=== PATIENT | female | born 1970 | race Caucasian/White ===

== ENCOUNTER 2016-07-12 06:35 | Inpatient (IN) | payer SELFPAY ==
[2016-07-12] VITALS (11 sets, daily range): BP systolic 127–142; BP diastolic 68–89; PULSE 82–150; RESP 18–24; TEMP 98.1–102.3; O2SAT 95–100
[~2016-07-12] VITALS: Ht 167.6 cm; Wt 123.0 kg
[~2016-07-12 06:35] MED LIST: MOBI15TA PO; TRAM50 PO; Z.0.NO CURRENT MEDS
[2016-07-12] MEDS ORDERED: SODIUM CHLOR 0.9% 1000 ML INJ 1,000 ML IV SCH (07:09)
[2016-07-12] MEDS ORDERED: MORPHINE SULFATE 4 MG/ML INJ IV PUSH ONE (07:15)
[2016-07-12] MEDS ORDERED: SODIUM CHLORIDE 0.9% FLUSH 10 ML FLUSH IV FLUSH PRN ×2 (07:15→12:00)
[2016-07-12] MEDS ORDERED: ONDANSETRON HCL 4 MG/2 ML VIAL IVP ONE (07:15)
--- NOTE | 2016-07-12 07:15 | PD ---
HPI Chief Complaint: Abdominal Pain Time Seen by Provider: 07:02 Travel History International Travel<30 days: No Contact w/Intl Traveler<30days: No Traveled to known affect area: No History of Present Illness HPI This 45-year-old female presents the emergency department with chills abdominal pain and body aches for the past 4-5 days. Patient states she's also having nausea and one episode of emesis morning. States she's never had something was this happen before. She points to her entire abdomen for the pain however there seems to localize mostly to the right upper quadrant. She states it radiates to her back and upper spine. Denies any history of surgeries in the past. Cannot identify any alleviating or exacerbating factors. States she's been taking ibuprofen at home with minimal relief. Also endorses decreased bowel movement frequency over this time period. Symptoms are moderate. Patient states she thought she was having an appendicitis his pain was in her right lower quadrant and her daughter had one recently however that pain has resolved. PFSH Past Medical History Medical History: Denies Significant Hx Diminished Hearing: No Medical other: Yes (OVARIAN CYSTS) Tetanus Vaccination: Unknown Influenza Vaccination: No ?: Not LMP: 3 WEEKS PRIOR : 3 Para: 2 Past Surgical History Surgical History: No Previous Surgery Section: Yes Social History Alcohol Use: Yes (OCCASIONAL) Tobacco Use: Yes (1 PACK PER WEEK) Substance Use: No Allergies-Medications (Allergen,Severity, Reaction): Coded Allergies: Sulfa (Verified Allergy, Severe, HIVES, 07/12/16) Reported Meds & Prescriptions Reported Meds & Active Scripts Active No Active Prescriptions or Reported Medications Review of Systems Except as stated in HPI: all other systems reviewed are Neg Physical Exam Narrative GENERAL: Well-developed, overweight in no obvious distress. SKIN: Focused skin assessment warm/dry. HEAD: Atraumatic. Normocephalic. EYES: Pupils equal and round. No scleral icterus. No injection or drainage. ENT: No nasal bleeding or discharge. Mucous membranes pink and dry. NECK: Trachea midline. No JVD. CARDIOVASCULAR: Regular rhythm with mild tachycardia. No murmur appreciated. 2 + bilateral equal pulses in all 4 extremities RESPIRATORY: No accessory muscle use. Clear to auscultation. Breath sounds equal bilaterally. GASTROINTESTINAL: Abdomen soft, moderately tender in the right upper quadrant, weakly positive Calvo sign. nondistended. Hepatic and splenic margins not palpable. No rebound no percussive tenderness. No tenderness at McBurney's point. MUSCULOSKELETAL: No obvious deformities. No clubbing. No cyanosis. No edema. NEUROLOGICAL: Awake and alert. No obvious cranial nerve deficits. Motor grossly within normal limits. Normal speech. PSYCHIATRIC: Appropriate mood and affect; insight and judgment normal. Data Data Last Documented VS Vital Signs Date Time Temp Pulse Resp B/P Pulse Ox O2 Delivery O2 Flow Rate FiO2 07/12/16 11:11 19 07/12/16 11:08 102.3 132 127/69 97 Room Air 07/12/16 10:01 15 Orders Complete Blood Count With Diff (07/12/16 07:09) Comprehensive Metabolic Panel (07/12/16 07:09) Lipase (07/12/16 07:09) Prothrombin Time / Inr (Pt) (07/12/16 07:09) Act Partial Throm Time (Ptt) (07/12/16 07:09) Urinalysis - C+S If Indicated (07/12/16 07:09) Ct Abd/Pel W Iv Contrast(Rout) (07/12/16 07:09) Us Abdomen Gallbladder (07/12/16 ) Iv Access Insert/Monitor (07/12/16 07:09) Ecg Monitoring (07/12/16 07:09) Oximetry (07/12/16 07:09) Morphine Inj (Morphine Inj) (07/12/16 07:15) Ondansetron Inj (Zofran Inj) (07/12/16 07:15) Sodium Chlor 0.9% 1000 Ml Inj (Ns 1000 M (07/12/16 07:09) Sodium Chloride 0.9% Flush (Ns Flush) (07/12/16 07:15) Electrocardiogram (07/12/16 07:09) Ed Urine Pregnancytest Poc (07/12/16 07:09) Urine Culture (07/12/16 08:15) Iohexol 350 Inj (Omnipaque 350 Inj) (07/12/16 09:20) Hydromorphone Pf Inj (Dilaudid Pf Inj) (07/12/16 10:15) Blood Culture (07/12/16 10:02) Lactic Acid (07/12/16 10:02) Sodium Chlor 0.9% 1000 Ml Inj (Ns 1000 M (07/12/16 10:15) Piperacil-Tazo 4.5 Gm Premix (Zosyn 4.5 (07/12/16 10:15) Vancomycin Inj (Vancomycin Inj) (07/12/16 10:15) Ondansetron Inj (Zofran Inj) (07/12/16 11:00) Acetaminophen (Tylenol) (07/12/16 11:00) Sodium Chlor 0.9% 1000 Ml Inj (Ns 1000 M (07/12/16 11:45) Sodium Chlor 0.9% 1000 Ml Inj (Ns 1000 M (07/12/16 11:45) Admit Order (Ed Use Only) (07/12/16 ) Labs Laboratory Tests Test 07/12/16 07/12/16 07/12/16 07:35 08:15 10:15 White Blood Count 9.1 TH/MM3 Red Blood Count 4.47 MIL/MM3 Hemoglobin 11.1 GM/DL Hematocrit 34.9 % Mean Corpuscular Volume 78.2 FL Mean Corpuscular Hemoglobin 24.9 PG Mean Corpuscular Hemoglobin 31.8 % Concent Red Cell Distribution Width 16.2 % Platelet Count 202 TH/MM3 Mean Platelet Volume 8.8 FL Neutrophils (%) (Auto) 86.7 % Lymphocytes (%) (Auto) 7.8 % Monocytes (%) (Auto) 4.2 % Eosinophils (%) (Auto) 0.7 % Basophils (%) (Auto) 0.6 % Neutrophils # (Auto) 7.9 TH/MM3 Lymphocytes # (Auto) 0.7 TH/MM3 Monocytes # (Auto) 0.4 TH/MM3 Eosinophils # (Auto) 0.1 TH/MM3 Basophils # (Auto) 0.1 TH/MM3 CBC Comment DIFF FINAL Differential Comment Prothrombin Time 10.5 SEC Prothromb Time International 1.0 RATIO Ratio Activated Partial 28.6 SEC Thromboplast Time Sodium Level 140 MEQ/L Potassium Level 3.7 MEQ/L Chloride Level 104 MEQ/L Carbon Dioxide Level 26.9 MEQ/L Anion Gap 9 MEQ/L Blood Urea Nitrogen 17 MG/DL Creatinine 0.84 MG/DL Estimat Glomerular Filtration 73 ML/MIN Rate Random Glucose 139 MG/DL Calcium Level 9.0 MG/DL Total Bilirubin 0.8 MG/DL Aspartate Amino Transf 15 U/L (AST/SGOT) Alanine Aminotransferase 10 U/L (ALT/SGPT) Alkaline Phosphatase 71 U/L Total Protein 7.2 GM/DL Albumin 3.5 GM/DL Lipase 75 U/L Urine Color YELLOW Urine Turbidity CLOUDY Urine pH 6.0 Urine Specific [place] 1.018 Urine Protein 100 mg/dL Urine Glucose (UA) NEG mg/dL Urine Ketones NEG mg/dL Urine Occult Blood SMALL Urine Nitrite POS Urine Bilirubin NEG Urine Urobilinogen LESS THAN 2.0 MG/DL Urine Leukocyte Esterase LARGE Urine RBC 11 /hpf Urine WBC /hpf Urine WBC Clumps MANY Urine Squamous Epithelial 5 /hpf Cells Urine Bacteria MOD /hpf Urine Mucus FEW /lpf Microscopic Urinalysis Comment CULTURE INDICATED Lactic Acid Level 5.9 mmol/L MDM Medical Decision Making Medical Screen Exam Complete: Yes Emergency Medical Condition: Yes Interpretation(s) EKG shows sinus tachycardia rate of 101, intervals otherwise within normal limits, normal axis and normal R-wave progression. No concerning ST T changes. This is a normal EKG except for rate. Differential Diagnosis Cholecystitis, Cholelithiasis, kidney stone, urinary tract infection, sepsis, severe sepsis. Narrative Course Patient was roomed in emergency department, my initial exam is highly consistent with intermittent biliary colic and possible acute cholecystitis. Patient did have an ultrasound which was weakly positive for cholecystitis. However her liver labs look well. At 10:00 patient had status change: Became quite tachycardic and nauseous. She heart rate went as high as 150. She did spike a temperature this time to 102. She now meet surgical criteria and full septic workup was started. Her lactic acid returned at 6.8. She was given 30 cc per KG bolus and started on vancomycin and Zosyn. She was given Dilaudid and her heart rate was controlled with Dilaudid alone. She appeared much more comfortable after that. Patient was discussed with Dr. Sosa for admission to the ICU who is agreeable. Patient was discussed with Dr. Harris Reynolds who is evaluating the patient at bedside. Likely we'll try for ureteral stent placement tomorrow. Dr. China Olsen or has also been consult today who will see the patient in routine consult probably later this afternoon. Dr. Olsen later called me and stated that if Dr. Reynolds is going to take to the operating room tomorrow she would consider doing a hysterectomy at that time. She is going to call Dr. Reynolds directly. These consultants recommendations were passed on to Dr. Sosa Patient despite her lactic acid is responded quite well to Dilaudid alone. She was given core measure fluid bolus resuscitation and antibiotics after the sepsis was recognized at 10:00. Critical Care Narrative Aggregate critical care time was 35 minutes. Time to perform other separately billable procedures was not included in the critical care time. My time did not include minutes spent treating any other patients simultaneously or on activities that did not directly contribute to the patient's treatment. The services I provided to this patient were to treat and/or prevent clinically significant deterioration that could result in: , disability, organ failure. I provided critical care services requiring my management, as noted below: Chart data review, documentation time, medication orders and management, vital sign assessments/reviewing monitor data, ordering and reviewing lab tests, ordering and interpreting/reviewing x-rays and diagnostic studies, care of the patient and discussion of the patient with the admitting physicians. Diagnosis Primary Impression: Sepsis Qualified Code: A41.9 - Sepsis, due to unspecified organism Additional Impressions: UTI (urinary tract infection) Qualified Code: N10 - Acute pyelonephritis RUQ abdominal pain Abdominal mass Qualified Code: R19.01 - Right upper quadrant abdominal mass Admitting Information Admitting Physician Requests: Admit Scripts No Active Prescriptions or Reported Meds Condition: Gaurav Ayala MD July 12, 2016 07:15
[2016-07-12 08:16] LABS: AUTOMATED NEUTROPHIL # 7.9 TH/MM3 (1.8-7.7); BASOPHIL # 0.1 TH/MM3 (0-0.2); BASOPHIL % 0.6 % (0.0-2.0); EOSINOPHIL # 0.1 TH/MM3 (0-0.4); EOSINOPHIL % 0.7 % (0.0-4.0); HEMATOCRIT 34.9 % (35.0-46.0); HEMO FLAGS DIFF FINAL; LYMPH % 7.8 % (9.0-44.0); LYMPHOCYTE # 0.7 TH/MM3 (1.0-4.8); MEAN CELL VOLUME 78.2 FL (80.0-100.0); MEAN CORPUSCULAR HEMOGLOBIN 24.9 PG (27.0-34.0); MEAN CORPUSCULAR HGB CONC 31.8 % (32.0-36.0); MONO % 4.2 % (0.0-8.0); NEUT % 86.7 % (16.0-70.0); PLATELET COUNT 202 TH/MM3 (150-450); RED BLOOD COUNT 4.47 MIL/MM3 (4.00-5.30); RED CELL DISTRIBUTION WIDTH 16.2 % (11.6-17.2); WHITE BLOOD COUNT 9.1 TH/MM3 (4.0-11.0)
[2016-07-12 08:24] LABS: APTT (PATIENT) 28.6 SEC (24.3-30.1); PROTHROMBIN TIME - PATIENT 10.5 SEC (9.8-11.6)
[2016-07-12 08:40] LABS: ALKALINE PHOSPHATASE 71 U/L (45-117); ALT (GPT) 10 U/L (10-53); ANION GAP 9 MEQ/L (5-15); AST (GOT) 15 U/L (15-37); BICARBONATE 26.9 MEQ/L (21.0-32.0); BLOOD UREA NITROGEN 17 MG/DL (7-18); CHLORIDE 104 MEQ/L (98-107); GLOMERULAR FILTRATION RATE 73 ML/MIN (>89); POTASSIUM 3.7 MEQ/L (3.5-5.1); SODIUM (NA) 140 MEQ/L (136-145); TOTAL BILIRUBIN ADULT 0.8 MG/DL (0.2-1.0)
[2016-07-12 08:49] LABS: BACTERIA, URINE MOD /hpf; BLOOD, URINE SMALL (NEG); COMMENT (UR) CULTURE INDICATED; CULTURE IF INDICATED CULTURE INDICATED; GLUCOSE,URINE NEG (NEG); KETONE, URINE NEG (NEG); MUCUS URINE FEW /lpf (OCC); SQUAMOUS EPITHELIAL CELL URINE 5 /hpf (0-5); URINE COLOR YELLOW (YELLW/STRAW)
[2016-07-12 08:59] LABS: NITRITE,URINE POS (NEG)
--- NOTE | 2016-07-12 09:02 | RADRPT ---
EXAM DATE/TIME: 07/12/2016 07:38 [facility] COMPARISON: No previous studies available for comparison. INDICATIONS : Right upper quadrant pain. MEDICAL HISTORY : Ovarian cysts. Abdominal pain localized mostly in the right upper quadrant. Nausea. Vomitting. SURGICAL HISTORY : None. ENCOUNTER: Initial ACUITY: 4-6 days PAIN SCORE: 8/10 LOCATION: Right upper quadrant MEASUREMENTS: LIVER: 18.9 cm length COMMON DUCT: 6 mm RIGHT KIDNEY: 12.7 x 6.2 x 5.6 cm FINDINGS: LIVER: Mildly prominent in size. Otherwise within normal limits. COMMON DUCT: No intraluminal mass or stone visualized. GALLBLADDER: Small amount of sludge in the dependent portion of the gallbladder. No shadowing calculi identified. No wall thickening or pericholecystic fluid. Patient reports discomfort with ultrasound transducer pr essure over the gallbladder. PANCREAS: The visualized portions are within normal limits. RIGHT KIDNEY: No evidence of hydronephrosis, stone, or mass. CONCLUSION: 1. Liver mildly enlarged. 2. Common duct diameter is mildly prominent for age. 3. Sludge in the gallbladder. No calculi or wall thickening identified. Patient reports pain with tra nsducer pressure over the gallbladder. Chang Rose MD on July 12, 2016 at 8:55 Board Certified Radiologist. This report was verified electronically.
[2016-07-12] MEDS ORDERED: IOHEXOL 350 MG/ML 10 ML VIAL (for RAD DIAG) IV ONE (09:20)
--- NOTE | 2016-07-12 09:56 | RADRPT ---
EXAM DATE/TIME: 07/12/2016 09:05 [facility] COMPARISON: No previous studies available for comparison. INDICATIONS : Right flank abdomen pain/ Flu like symptoms. IV CONTRAST: 85 cc Omnipaque 350 (iohexol) IV ORAL CONTRAST: No oral contrast ingested. RADIATION DOSE: 16.89 CTDIvol (mGy) MEDICAL HISTORY : None SURGICAL HISTORY : section. ENCOUNTER: Initial ACUITY: 3 days PAIN SCALE: 7/10 LOCATION: Right flank TECHNIQUE: Volumetric scanning of the abdomen and pelvis was performed. Using automated exposure control and ad justment of the mA and/or kV according to patient size, radiation dose was kept as low as reasonably achievable to obtain optimal diagnostic quality images. FINDINGS: LOWER LUNGS: The visualized lower lungs are clear. LIVER: Homogeneous density without lesion. There is no dilation of the biliary tree. No calcified gallston es. SPLEEN: Spleen is mildly enlarged measuring 14.1 cm in craniocaudal dimension. PANCREAS: Within normal limits. KIDNEYS: Mild right hydronephrosis and mild proximal to mid right hydroureter. Right-sided mild perinephric st randing and periureteral stranding. No ureteral calculus identified. Left kidney and ureter are withi n normal limits. ADRENAL GLANDS: Within normal limits. VASCULAR: There is no aortic aneurysm. BOWEL/MESENTERY: Scattered colonic diverticula. No evidence of acute diverticulitis. No bowel dilatation. Appendix wit hin normal limits. No free air or free fluid. ABDOMINAL WALL: 1.6 cm fat-containing paraumbilical hernia. RETROPERITONEUM: There is no lymphadenopathy. BLADDER: No wall thickening or mass. REPRODUCTIVE: Uterus is markedly enlarged wit 11.8 x 7.5 cm heterogeneous solid mass of the right side of the uteri ne fundus likely representing a fibroid. The level of ureteral obstruction appears to be at the level of the fibroid. Prominent nabothian cysts in the cervix. 5.6 cm cystic mass in the left ovary. 3.9 c m cystic area in the right ovary. Right ovary is superior to the uterine fundus. INGUINAL: There is no lymphadenopathy or hernia. MUSCULOSKELETAL: Prominent degenerative findings of the lumbar spine facet joints. CONCLUSION: 1. Mild right-sided hydronephrosis and mild proximal to mid right hydroureter. Perinephric and periur eteral stranding also noted along with mild delay in right-sided renal enhancement. No calculi identi fied. The level of obstruction appears to be at the level of a large right-sided uterine mass likely representing a fibroid. 2. Bilateral cystic ovarian masses may represent ovarian cysts and could be further evaluated with letitia fritz. Chang Rose MD on July 12, 2016 at 9:30 Board Certified Radiologist. This report was verified electronically.
[2016-07-12] MEDS ORDERED: VANCOMYCIN INJ 1,000 MG in SODIUM CHLOR 0.9% 250 ML INJ 250 ML IV ONE (10:15)
[2016-07-12] MEDS ORDERED: PIPERACIL-TAZO 4.5 GM PREMIX 100 ML IV ONE (10:15)
[2016-07-12] MEDS ORDERED: HYDROmorphone HCL PF 1 MG/ML VIAL IV PUSH ONE (10:15)
[2016-07-12] MEDS: SODIUM CHLOR 0.9% 1000 ML INJ 1,000 ML IV ONE ×2 (10:35→10:53)
[2016-07-12] MEDS ORDERED: ACETAMINOPHEN 325 MG TAB PO ONE (11:00)
[2016-07-12] MEDS ORDERED: ONDANSETRON HCL 4 MG/2 ML VIAL IV PUSH ONE (11:00)
[2016-07-12] MEDS ORDERED: SODIUM CHLOR 0.9% 1000 ML INJ 1,000 ML IV ONE ×2 (11:45)
[2016-07-12] MEDS ORDERED: CHLORHEXIDINE GLUCONATE 2 % 1 PACK (2 CLOTHS) TOP PRN (12:00)
[2016-07-12] MEDS ORDERED: MISCELLANEOUS NURSING INFORMATION XX SCH (12:00)
[2016-07-12] MEDS ORDERED: Vancomycin Consult Pharmacy 1 EA OTHER SCH (12:00)
[2016-07-12] MEDS: PANTOPRAZOLE SODIUM 40 MG VIAL IV SCH (12:21)
--- NOTE | 2016-07-12 12:28 | PD.CONS ---
HPI Service Urology Consult Requested By Primary Care Physician Non-Staff Diagnosis: History of Present Illness 45-year-old female who presents with increasing abdominal pain low back pain with nausea vomiting and fever. She states that her symptoms began to worsen over the weekend and have persistently escalated. She has nausea and vomiting this morning with a fever at home. She has a history of an ovarian mass and due to insurance issues this has not been addressed for over 2 years. She denies any flank pain but does admit to ongoing low back pain. CT scan was performed while the patient was in the emergency room which demonstrated a 11 cm x 7 cm pelvic mass/ovarian cyst which is compressing the right ureter causing mild hydroureteronephrosis. She denies any prior history of urinary tract infection but does have a positive UA on admission. She denies any prior history of stones, UTIs, or gross hematuria. ASSOCIATE RELATIONS SPECIALIST consult is currently pending. Review of Systems Constitutional: COMPLAINS OF: Diaphoretic episodes Eyes: DENIES: Blurred vision, Diplopia Cardiovascular: DENIES: Chest pain Gastrointestinal: COMPLAINS OF: Abdominal pain, Nausea, Vomiting Genitourinary: DENIES: Urinary frequency, Urinary incontinence, Urgency, Hematuria, Dysuria Musculoskeletal: DENIES: Joint pain Hematologic/lymphatic: DENIES: Bruising Immunologic/allergic: DENIES: Eczema Neurologic: DENIES: Abnormal gait Psychiatric: DENIES: Anxiety Past Family Social History Past Medical History History of ovarian cyst Past Surgical History Denies Allergies: Coded Allergies: Sulfa (Verified Allergy, Severe, HIVES, 07/12/16) Family History Heart disease Social History Occasional alcohol is noted with occasional smoking. Does not use drugs. Physical Exam Vital Signs Date Time Temp Pulse Resp B/P Pulse Ox O2 Delivery O2 Flow Rate FiO2 07/12/16 12:06 100.4 123 20 136/68 95 Room Air 07/12/16 11:11 19 07/12/16 11:08 102.3 132 19 127/69 97 Room Air 07/12/16 11:08 102.3 132 19 127/69 97 Room Air 07/12/16 10:01 99.9 150 24 130/89 100 Non-Rebreather 15 07/12/16 09:33 104 20 132/78 98 Room Air 07/12/16 07:47 20 07/12/16 07:16 99.7 96 20 136/75 98 Room Air 07/12/16 07:05 20 07/12/16 07:05 99.7 96 20 136/75 98 Room Air 07/12/16 06:38 98.1 113 18 142/82 97 Room Air Physical Exam GENERAL: This is a well-nourished, well-developed patient, in no apparent distress. SKIN: No rashes, ecchymoses or lesions. Cool and dry. HEAD: Atraumatic. Normocephalic. No temporal or scalp tenderness. EYES: Pupils equal round and reactive. Extraocular motions intact. No scleral icterus. No injection or drainage. ENT: Nose without bleeding, purulent drainage or septal hematoma. Throat without erythema, tonsillar hypertrophy or exudate. Uvula midline. Airway patent. NECK: Trachea midline. No JVD or lymphadenopathy. Supple, nontender, no meningeal signs. CARDIOVASCULAR: Regular rate and rhythm without murmurs, gallops, or rubs. RESPIRATORY: Clear to auscultation. Breath sounds equal bilaterally. No wheezes , rales, or rhonchi. GASTROINTESTINAL: Abdomen soft, tender with palpation of lower abdomen, nondistended. No hepato-splenomegaly, No guarding. GENITOURINARY: Normal external female genitalia MUSCULOSKELETAL: Extremities without clubbing, cyanosis, or edema. No joint tenderness, effusion, or edema noted. No calf tenderness. Negative Homans sign bilaterally. NEUROLOGICAL: Awake and alert. Cranial nerves II through XII intact. Motor and sensory grossly within normal limits. Five out of 5 muscle strength in all muscle groups. Normal speech. Laboratory Tests Test 07/12/16 07/12/16 07/12/16 07:35 08:15 10:15 White Blood Count 9.1 Red Blood Count 4.47 Hemoglobin 11.1 Hematocrit 34.9 Mean Corpuscular Volume 78.2 Mean Corpuscular Hemoglobin 24.9 Mean Corpuscular Hemoglobin 31.8 Concent Red Cell Distribution Width 16.2 Platelet Count 202 Mean Platelet Volume 8.8 Neutrophils (%) (Auto) 86.7 Lymphocytes (%) (Auto) 7.8 Monocytes (%) (Auto) 4.2 Eosinophils (%) (Auto) 0.7 Basophils (%) (Auto) 0.6 Neutrophils # (Auto) 7.9 Lymphocytes # (Auto) 0.7 Monocytes # (Auto) 0.4 Eosinophils # (Auto) 0.1 Basophils # (Auto) 0.1 CBC Comment DIFF FINAL Differential Comment Prothrombin Time 10.5 Prothromb Time International 1.0 Ratio Activated Partial 28.6 Thromboplast Time Sodium Level 140 Potassium Level 3.7 Chloride Level 104 Carbon Dioxide Level 26.9 Anion Gap 9 Blood Urea Nitrogen 17 Creatinine 0.84 Estimat Glomerular Filtration 73 Rate Random Glucose 139 Calcium Level 9.0 Total Bilirubin 0.8 Aspartate Amino Transf 15 (AST/SGOT) Alanine Aminotransferase 10 (ALT/SGPT) Alkaline Phosphatase 71 Total Protein 7.2 Albumin 3.5 Lipase 75 Urine Color YELLOW Urine Turbidity CLOUDY Urine pH 6.0 Urine Specific [place] 1.018 Urine Protein 100 Urine Glucose (UA) NEG Urine Ketones NEG Urine Occult Blood SMALL Urine Nitrite POS Urine Bilirubin NEG Urine Urobilinogen LESS THAN 2.0 Urine Leukocyte Esterase LARGE Urine RBC 11 Urine WBC Urine WBC Clumps MANY Urine Squamous Epithelial 5 Cells Urine Bacteria MOD Urine Mucus FEW Microscopic Urinalysis Comment CULTURE INDICATED Lactic Acid Level 5.9 Date/Time Procedure Status Source Growth 07/12/16 10:25 Aerobic Blood Culture Received Blood Peripheral Pending 07/12/16 10:25 Anaerobic Blood Culture Received Blood Peripheral Pending 07/12/16 08:15 Urine Culture Received Urine Clean Catch Pending Result Diagram: 07/12/16 0735 07/12/16 0735 Imaging Last Impressions Abdomen/Pelvis CT 07/12/16 0709 Signed Impressions: Service Date/Time: Tuesday, July 12, 2016 09:05 - CONCLUSION: 1. Mild right-sided hydronephrosis and mild proximal to mid right hydroureter. Perinephric and periureteral stranding also noted along with mild delay in right-sided renal enhancement. No calculi identified. The level of obstruction appears to be at the level of a large right-sided uterine mass likely representing a fibroid. 2. Bilateral cystic ovarian masses may represent ovarian cysts and could be further evaluated with ultrasound. Chang Rose MD Gall Bladder Ultrasound 07/12/16 0000 Signed Impressions: Service Date/Time: Tuesday, July 12, 2016 07:38 - CONCLUSION: 1. Liver mildly enlarged. 2. Common duct diameter is mildly prominent for age. 3. Sludge in the gallbladder. No calculi or wall thickening identified. Patient reports pain with transducer pressure over the gallbladder. Chang Rose MD Assessment and Plan Assessment and Plan 45-year-old female with findings of pelvic mass/ovarian cyst with mild right hydronephrosis and hydroureter with possible UTI. Recommend DTPA renal scan to rule out evidence of obstruction. If obstruction is present, will require cystoscopy with right double-J stent insertion. Continue IV fluids and IV antibiotics. Nothing by mouth after midnight. ASSOCIATE RELATIONS SPECIALIST consult pending. Thank you for the consult and for allow me to participate in the care of this patient. Harris Reynolds DO July 12, 2016 12:28
[2016-07-12] MEDS ORDERED: RESP: ALBUTEROL 2.5 MG/IPRATROPIUM 0.5 MG NEB (PRN) NEB (12:30)
[2016-07-12] MEDS ORDERED: FUROSEMIDE 40 MG/4 ML VIAL ONE (14:20)
--- NOTE | 2016-07-12 14:39 | HHI.HP ---
[facility] Service Critical Care Medicine Primary Care Physician Non-Staff Admission Diagnosis Severe Sepsis, UTI, Obstructive uropathy. Diagnosis: Chief Complaint: Abdominal pain Travel History International Travel<30 Days: No Contact w/Intl Traveler <30 Da: No Traveled to Known Affected Are: No Sepsis Criteria SIRS Criteria (2 or more): Temp > 100.9 or < 96.8, WBC > 41949, < 4000 or > 10 % bands Sepsis Criteria (SIRS+source): Infect source susp/known Severe Sepsis (+one): Lactate >2 Criteria Outcome: Meets severe sepsis criteria History of Present Illness This 45-year-old female presents the emergency department with chills abdominal pain and body aches for the past 4-5 days. Patient states she's also having nausea and one episode of emesis morning. States she's never had something was this happen before. She points to her entire abdomen for the pain however there seems to localize mostly to the right upper quadrant. She states it radiates to her back and upper spine. Denies any history of surgeries in the past. Cannot identify any alleviating or exacerbating factors. States she's been taking ibuprofen at home with minimal relief. Also endorses decreased bowel movement frequency over this time period. Symptoms are moderate. Patient underwent CT abdomen and pelvis which revealed right hydronephrosis with perinephric stranding as well as right sided uterine mass. She was also noted to have an elevated lactic acid and was felt to be septic from pyelonephritis. Patient was accepted for admission by critical care medicine service. When I evaluated the patient in the ER she is resting in the ER stretcher did not appear to be in any acute distress. She had received 3 L of crystalloid bolus as well as IV antibiotics. She denied any shortness of breath or chest pain. Denied any nausea currently. Denied any melena or rectal bleeding. She states she has had problems with recurrent UTIs over the last 6 months to year and has known about her pelvic mass however could not get medical treatment due to insurance issues. PENDING SALE TO [facility] Past Medical History Medical History: Denies Significant Hx Diminished Hearing: No Medical other: Yes (OVARIAN CYSTS) Tetanus Vaccination: Unknown Influenza Vaccination: No ?: Not LMP: 3 WEEKS PRIOR : 3 Para: 2 Past Surgical History Surgical History: No Previous Surgery Section: Yes Social History Alcohol Use: Yes (OCCASIONAL) Tobacco Use: Yes (1 PACK PER WEEK) Substance Use: No Allergies-Medications (Allergen,Severity, Reaction): Coded Allergies: Sulfa (Verified Allergy, Severe, HIVES, 07/12/16) Reported Meds & Prescriptions Reported Meds & Active Scripts Active No Active Prescriptions or Reported Medications Review of Systems Except as stated in HPI: all other systems reviewed are Neg Physical Exam Vital Signs Vital Signs Date Time Temp Pulse Resp B/P Pulse Ox O2 Delivery O2 Flow Rate FiO2 07/12/16 13:31 99.5 118 20 136/74 96 07/12/16 12:06 100.4 123 20 136/68 95 Room Air 07/12/16 11:11 19 07/12/16 11:08 102.3 132 19 127/69 97 Room Air 07/12/16 11:08 102.3 132 19 127/69 97 Room Air 07/12/16 10:01 99.9 150 24 130/89 100 Non-Rebreather 15 07/12/16 09:33 104 20 132/78 98 Room Air 07/12/16 07:47 20 07/12/16 07:16 99.7 96 20 136/75 98 Room Air 07/12/16 07:05 20 07/12/16 07:05 99.7 96 20 136/75 98 Room Air 07/12/16 06:38 98.1 113 18 142/82 97 Room Air Physical Exam Physical Exam Narrative GENERAL: Well-developed, overweight in no obvious distress. SKIN: Focused skin assessment warm/dry. HEAD: Atraumatic. Normocephalic. EYES: Pupils equal and round. No scleral icterus. No injection or drainage. ENT: No nasal bleeding or discharge. Mucous membranes pink and dry. NECK: Trachea midline. No JVD. CARDIOVASCULAR: Regular rhythm with mild tachycardia. No murmur appreciated. 2 + bilateral equal pulses in all 4 extremities RESPIRATORY: No accessory muscle use. Clear to auscultation. Breath sounds equal bilaterally. GASTROINTESTINAL: Abdomen soft, moderately tender in the right side of abdomen. nondistended. Hepatic and splenic margins not palpable. No rebound no percussive tenderness. No tenderness at McBurney's point. MUSCULOSKELETAL: No obvious deformities. No clubbing. No cyanosis. No edema. NEUROLOGICAL: Awake and alert. No obvious cranial nerve deficits. Motor grossly within normal limits. Normal speech. PSYCHIATRIC: Appropriate mood and affect; insight and judgment normal. Laboratory Laboratory Tests Test 07/12/16 07/12/16 07/12/16 07:35 08:15 10:15 White Blood Count 9.1 Red Blood Count 4.47 Hemoglobin 11.1 Hematocrit 34.9 Mean Corpuscular Volume 78.2 Mean Corpuscular Hemoglobin 24.9 Mean Corpuscular Hemoglobin 31.8 Concent Red Cell Distribution Width 16.2 Platelet Count 202 Mean Platelet Volume 8.8 Neutrophils (%) (Auto) 86.7 Lymphocytes (%) (Auto) 7.8 Monocytes (%) (Auto) 4.2 Eosinophils (%) (Auto) 0.7 Basophils (%) (Auto) 0.6 Neutrophils # (Auto) 7.9 Lymphocytes # (Auto) 0.7 Monocytes # (Auto) 0.4 Eosinophils # (Auto) 0.1 Basophils # (Auto) 0.1 CBC Comment DIFF FINAL Differential Comment Prothrombin Time 10.5 Prothromb Time International 1.0 Ratio Activated Partial 28.6 Thromboplast Time Sodium Level 140 Potassium Level 3.7 Chloride Level 104 Carbon Dioxide Level 26.9 Anion Gap 9 Blood Urea Nitrogen 17 Creatinine 0.84 Estimat Glomerular Filtration 73 Rate Random Glucose 139 Calcium Level 9.0 Total Bilirubin 0.8 Aspartate Amino Transf 15 (AST/SGOT) Alanine Aminotransferase 10 (ALT/SGPT) Alkaline Phosphatase 71 Total Protein 7.2 Albumin 3.5 Lipase 75 Urine Color YELLOW Urine Turbidity CLOUDY Urine pH 6.0 Urine Specific [place] 1.018 Urine Protein 100 Urine Glucose (UA) NEG Urine Ketones NEG Urine Occult Blood SMALL Urine Nitrite POS Urine Bilirubin NEG Urine Urobilinogen LESS THAN 2.0 Urine Leukocyte Esterase LARGE Urine RBC 11 Urine WBC Urine WBC Clumps MANY Urine Squamous Epithelial 5 Cells Urine Bacteria MOD Urine Mucus FEW Microscopic Urinalysis Comment CULTURE INDICATED Lactic Acid Level 5.9 Date/Time Procedure Status Source Growth 07/12/16 10:25 Aerobic Blood Culture Received Blood Peripheral Pending 07/12/16 10:25 Anaerobic Blood Culture Received Blood Peripheral Pending 07/12/16 08:15 Urine Culture Received Urine Clean Catch Pending Result Diagram: 07/12/16 0735 07/12/16 0735 Imaging Last Impressions Abdomen/Pelvis CT 07/12/16 0709 Signed Impressions: Service Date/Time: Sunday, July 12, 2016 09:05 - CONCLUSION: 1. Mild right-sided hydronephrosis and mild proximal to mid right hydroureter. Perinephric and periureteral stranding also noted along with mild delay in right-sided renal enhancement. No calculi identified. The level of obstruction appears to be at the level of a large right-sided uterine mass likely representing a fibroid. 2. Bilateral cystic ovarian masses may represent ovarian cysts and could be further evaluated with ultrasound. Chang Rose MD Gall Bladder Ultrasound 07/12/16 0000 Signed Impressions: Service Date/Time: Tuesday, July 12, 2016 07:38 - CONCLUSION: 1. Liver mildly enlarged. 2. Common duct diameter is mildly prominent for age. 3. Sludge in the gallbladder. No calculi or wall thickening identified. Patient reports pain with transducer pressure over the gallbladder. Chang Rose MD Septic Shock Reassessment Heart: Regular rate and rhythm Lungs: Clear Skin: Warm Peripheral Pulses: Bounding Right Radial Assessment and Plan Assessment and Plan 45-year-old female with: Pyelonephritis Right hydronephrosis secondary to right uterine mass Severe sepsis Hyperlactatemia Plan: Neuro: Follow neuro status. Pain medications as needed. Cardiovascular: Received multiple fluid boluses in the ER. Continue IV hydration. 10 lactic acid. Watch for hypotension. Pulmonary: Bronchodilators as needed. Nasal cannula as needed. GI/liver: Heart healthy diet Renal/: Urology consulted and patient has been evaluated by Dr. Reynolds for right sided hydronephrosis secondary to right uterine mass. He is planning on ureteral stenting on 07/13 CAMPUS MONITOR: CAMPUS MONITOR consulted for right uterine mass ID: Follow-up cultures. Empiric antibiotic coverage with IV vancomycin/Zosyn. Patient has multiple courses of Cipro for recurrent UTIs. Heme: Follow CBC Endocrine: Watch for hyperglycemia, SSI for glycemic control if needed Prophylaxis: SCDs. Hold heparin or Lovenox till after procedure tomorrow. Patient is hemodynamically stable currently in no acute distress. We'll consult and transfer to hospitalist to assume medical management tomorrow. Critical care will be available as needed. Lul Lugo MD July 12, 2016 14:39
[2016-07-12] MEDS ORDERED: HYDROmorphone HCL PF 1 MG/ML VIAL IV PUSH PRN (16:15)
[2016-07-12] MEDS: PIPERACIL-TAZO 4.5 GM PREMIX 100 ML IV SCH ×2 (17:00→22:54)
--- NOTE | 2016-07-12 17:05 | PD.CONS ---
History & Physical H&P HUMAN RESOURCE OFFICER consultation Patient is a 45-year-old white female para 2 who presents with polynephritis, the patient's infection and seems to be related to ureteral obstruction on the left side due to impinging enlarging uterine fibroid patient states she's note for several years that she's had a fibroid uterus she's to try get it treated in the operated on but she has no insurance and she has no funds to allow this Thing to be going on every time she's tried she is turned away because lack of funds or insurance she presented and is now in the ICU related to a sepsis situation related to the pyelonephritis. Patient states she still has menstrual cycles that are regular but becoming much more painful and heavy Exam--patient is moderately obese she does have a tenderness in lower abdomen. On exam the uterine size is consistent with approximately 18 week gestation size and is 1-2+ tender Impression-uterine leiomyomata enlarged and compressing the ureter that appears to be on the left, this resulted in of stasis flow and pyelonephritis Plan-patient is set up to have a ureteral stent placed tomorrow by urology and I will discuss the case with Dr. Hou who is the HUMAN RESOURCE OFFICER doctor gleason operator tonight and today regarding the possibility of a CASSIE/BSO while the patient's here. Sadi Bond II, MD July 12, 2016 17:05
--- NOTE | 2016-07-12 17:26 | RADRPT ---
EXAM DATE/TIME: 07/12/2016 14:09 [place] COMPARISON: CT ABDOMEN & PELVIS W CONTRAST, July 12, 2016, 9:05. INDICATIONS : Obstruction. Right upper quadrant pain radiating to the back for five days. DOSE: 20.2 mCi Tc99m DTPA IV MEDICATION: 40 mg Lasix IV MEDICAL HISTORY : None SURGICAL HISTORY : section. ENCOUNTER: Initial ACUITY: 4 - 6 days PAIN SCALE: 6/10 LOCATION: Right upper quadrant TECHNIQUE: Dynamic images were performed in the posterior projection for a total of 28 minutes. FINDINGS: FLOW: There is symmetric arrival of bolus to both kidneys. There is homogeneous perfusion to both kidneys. Asymmetric differential function of the kidneys with 45% function on the left and 55% function on th e right. EXCRETION: There is normal renal cortical transit time and normal rate of washout from the parenchyma following Lasix. There is mild pooling in the right renal pelvis. CONCLUSION: 1. Mild pooling of contrast in the right renal pelvis but no evidence of obstruction. 2. Mildly decreased differential function of the left kidney relative to the right. Chang Rose MD on July 12, 2016 at 17:14 Board Certified Radiologist. This report was verified electronically.
[2016-07-12] MEDS: VANCOMYCIN INJ 1,500 MG in SODIUM CHLORID 0.9% 500 ML INJ 500 ML IV SCH (18:00)
[2016-07-12] MEDS: SODIUM CHLOR 0.9% 1000 ML INJ 1,000 ML IV SCH (18:37)
[2016-07-12] MEDS: SODIUM CHLORIDE 0.9% FLUSH 10 ML FLUSH IV FLUSH SCH (21:00)
[2016-07-13] VITALS (12 sets, daily range): PULSE 79–103
[2016-07-13] MEDS ORDERED: VANCOMYCIN INJ 1,000 MG in SODIUM CHLOR 0.9% 250 ML INJ 250 ML IV SCH ×2
[2016-07-13] MEDS: SODIUM CHLOR 0.9% 1000 ML INJ 1,000 ML IV SCH ×3 (01:49→23:18)
[2016-07-13] MEDS: CHLORHEXIDINE GLUCONATE 2 % 1 PACK (2 CLOTHS) TOP SCH (01:51)
[2016-07-13 04:57] LABS: AUTOMATED NEUTROPHIL # 6.3 TH/MM3 (1.8-7.7); BASOPHIL # 0.1 TH/MM3 (0-0.2); BASOPHIL % 0.6 % (0.0-2.0); EOSINOPHIL # 0.1 TH/MM3 (0-0.4); EOSINOPHIL % 1.4 % (0.0-4.0); HEMATOCRIT 30.8 % (35.0-46.0); HEMO FLAGS DIFF FINAL; LYMPH % 14.3 % (9.0-44.0); LYMPHOCYTE # 1.2 TH/MM3 (1.0-4.8); MEAN CELL VOLUME 78.3 FL (80.0-100.0); MEAN CORPUSCULAR HEMOGLOBIN 25.3 PG (27.0-34.0); MEAN CORPUSCULAR HGB CONC 32.3 % (32.0-36.0); MONO % 6.4 % (0.0-8.0); NEUT % 77.3 % (16.0-70.0); PLATELET COUNT 173 TH/MM3 (150-450); RED BLOOD COUNT 3.93 MIL/MM3 (4.00-5.30); RED CELL DISTRIBUTION WIDTH 16.5 % (11.6-17.2); WHITE BLOOD COUNT 8.1 TH/MM3 (4.0-11.0)
[2016-07-13] MEDS: PIPERACIL-TAZO 4.5 GM PREMIX 100 ML IV SCH ×4 (05:29→23:18)
[2016-07-13] MEDS: ONDANSETRON HCL 4 MG/2 ML VIAL IV PUSH PRN ×3 (05:29→19:46)
[2016-07-13 05:33] LABS: ANION GAP 8 MEQ/L (5-15); AST (GOT) 19 U/L (15-37); BICARBONATE 28.2 MEQ/L (21.0-32.0); BLOOD UREA NITROGEN 16 MG/DL (7-18); CHLORIDE 104 MEQ/L (98-107); GLOMERULAR FILTRATION RATE 71 ML/MIN (>89); POTASSIUM 3.1 MEQ/L (3.5-5.1); SODIUM (NA) 140 MEQ/L (136-145)
[2016-07-13 05:35] LABS: ALKALINE PHOSPHATASE 63 U/L (45-117); ALT (GPT) 11 U/L (10-53); TOTAL BILIRUBIN ADULT 0.8 MG/DL (0.2-1.0)
[2016-07-13] MEDS: VANCOMYCIN INJ 1,500 MG in SODIUM CHLORID 0.9% 500 ML INJ 500 ML IV SCH (06:25)
--- NOTE | 2016-07-13 06:48 | MB ---
cc: STEFANO CASTILLO DATE OF CONSULTATION 07/12/2016 DATE OF 1970 REASON FOR CONSULTATION Large fibroid uterus possibly obstructing right ureteral collecting system. TIME OF CONSULTATION 5:30 HISTORY Suha is a 45-year-old white female para 2 with LMP approximately two weeks ago who came in today to the emergency room with severe abdominal and right-sided pain. She said this woke her up in the night and caused her to have nausea and vomiting. She also developed a fever of over 102. She has a history of frequent urinary tract infections and she knows that she has large fibroids as documented apparently at [facility]. She actually attempted evaluation at [facility] and after waiting eight months to get their share of cost clinic schedule, she was told she needed an MRI that she cannot afford and simply returned to [facility]. She has noted in the last year that her periods are coming every 14-15 days, lasting 5-6 days and becoming more painful. She has not had a BASKETBALL SCOUT exam with Pap smear in many years. She has had two children vaginally in the distant past. She still has her appendix and her gallbladder. She has not been aware of any pelvic inflammatory disease, endometriosis, inflammatory bowel condition or other concerns. PAST MEDICAL HISTORY She has no other chronic or systemic illnesses. She has had no hospitalizations other than the of her children. SOCIAL HISTORY She quit smoking a year ago. She does not drink. She has never used illicit drugs. 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 REVIEW OF SYSTEMS Her review of systems is otherwise negative. FAMILY HISTORY Noncontributory PHYSICAL EXAM On physical exam, she is an obese white female in no acute distress, sitting upright in her bed with chicken nuggets and fries. GENERAL: She is alert and oriented x3, very pleasant and cooperative. LUNGS: Her lungs were clear. HEART: Her heart rate and rhythm are regular. ABDOMEN: Her abdomen is obese and abdominal exam is really noncontributory. She does not exhibit significant CVA tenderness. I did not appreciate any hepatosplenomegaly. There were no hernias and no lymph nodes in the groin. PELVIC: Perineum appears to be well estrogenized. The vault is quite deep. The uterus is markedly enlarged. The cervix is distorted and flattened out and the uterus fills the cul-de-sac to the sidewalls and posteriorly. I cannot get a good idea on how big it is in the vertical dimension. EXTREMITIES: She has negative Homans and no significant varicosities. LABORATORY DATA Her white count is 9.1. Her hemoglobin 11.1. Her chemistry shows a creatinine of 0.84. Her lactic acid was elevated at 5.9. Liver functions, lipase and amylase were normal. Urine shows a significant amount of leukocyte esterase, bacteria, protein and glucose were negative. Also noted her random glucose was a little elevated at 139. IMAGING STUDIES Her MRI showed mild right-sided hydronephrosis and mild proximal to mid right hydroureter. There was some perinephric and periurethral stranding noted. No calculi were noted. It was felt that the level obstruction appear to be due to the distorted increased uterus with probably a large right-sided fibroid. Bilateral cystic ovaries were also noted. IMPRESSION Fever of unknown origin with significant abdominal pain and possible renal colic. Large uterine fibroid that may be partially obstructing the right ureter. Normal creatinine. Lack of gynecologic screening to rule out such processes as cervical disease, endometrial disease or ovarian disease. Differential diagnosis of her menometrorrhagia and uterine mass could be endometrial carcinoma, endometrial hyperplasia, mild myosarcoma, cervical cancer, she could have pelvic inflammatory disease, endometriosis or a non gynecologic condition in addition to the large fibroids. The fibroids need to be addressed in their own right given that her periods are not tolerable in amount, time, and duration. However, it is in her best interest to have a more complete workup which includes CA-125, a Pap smear and endometrial biopsy and a transvaginal ultrasound. I have explained to her that when she recovers from her infection, we will have these things done in my office and then schedule her surgery with ureteral stents placed by Dr. Reynolds in the near future. She voiced understanding and felt that all her questions were answered. MD ALEKSANDER Jorge/NEHA /7:39 PM /6:31 AM
[2016-07-13] MEDS ORDERED: POTASSIUM CHLOR 20 MEQ PREMIX 100 ML IV SCH (07:00)
[2016-07-13] MEDS: PANTOPRAZOLE SODIUM 40 MG VIAL IV SCH (07:51)
[2016-07-13] MEDS ORDERED: POTASSIUM CHLORIDE 20 MEQ CONTROLLED RELEASE TAB PO ONE (08:00)
[2016-07-13] MEDS: SODIUM CHLORIDE 0.9% FLUSH 10 ML FLUSH IV FLUSH SCH ×2 (08:04→21:00)
[2016-07-13] MEDS: oxyCODONE/ACETAMINOPHEN 10 MG/325 MG TAB PO PRN ×2 (09:45→21:06)
--- NOTE | 2016-07-13 10:41 | PD.CONS ---
HPI Chief Complaint severe abdominal pain and high fever known fibroids and heavy bleeding with pain possible compression of right ureter with mild hydronephrosis Gram - rods in blood cultures x2 Date Seen: Jul 13, 2016 Travel History International Travel<30 Days: No Contact w/Intl Traveler<30Days: No Known Affected Area: No History of Present Illness HPI Since yesterday the abdominal pain has not recurred. She has constipation. She has a headache. Afebrile. WBC 8.1 Potassium 3.1 hgb 10 (consistent with heavy chronic bleeding) additional history obtained: no hx abnormal pap. Hx fibroids and thickened endometrial lining. Can't take advantage of her annual [place] pass because walking and bending becoming increasingly painful. Allergies-Medications (Allergen,Severity, Reaction): Coded Allergies: Sulfa (Verified Allergy, Severe, HIVES, 07/12/16) Home Meds No Active Prescriptions or Reported Meds Physical Exam Vital Signs Date Time Temp Pulse Resp B/P Pulse Ox O2 Delivery O2 Flow Rate FiO2 07/13/16 10:00 99 07/13/16 08:00 99 07/13/16 06:00 92 07/13/16 04:00 90 07/13/16 02:00 79 07/13/16 00:00 86 07/12/16 22:00 82 07/12/16 20:00 90 07/12/16 15:00 98 07/12/16 13:31 99.5 118 20 136/74 96 07/12/16 12:06 100.4 123 20 136/68 95 Room Air 07/12/16 11:11 19 07/12/16 11:08 102.3 132 19 127/69 97 Room Air 07/12/16 11:08 102.3 132 19 127/69 97 Room Air Narrative GENERAL: Well-nourished, well-developed patient. SKIN: Warm and dry. HEAD: Normocephalic and atraumatic. EYES: No scleral icterus. No injection or drainage. ENT: No nasal drainage noted. Mucous membranes pink. Airway patent. NECK: Supple, trachea midline. No JVD. CARDIOVASCULAR: Regular rate and rhythm without murmurs, gallops, or rubs. RESPIRATORY: Breath sounds equal bilaterally. No accessory muscle use. BREASTS: Bilateral exam showed no masses , no retractions, no nipple discharge. ABDOMEN/GI: Abdomen soft, non-tender, bowel sounds present, no rebound, no guarding Gravid to [-] weeks size Fundal Height: [-] GENITOURINARY: External Genitalia: intact and normal in appearance BUS glands: [-] Cervix: [-] Dilatation: [-] Effacement: [-] Station: [-] Presentation: [-] Membranes: [intact or ruptured] Uterine Contractions: [-] FHT's: Category: [-] Baseline: [-] Reactive: [-] Variability: [-] Decels: [-] EXTREMITIES: No cyanosis or edema. BACK: Nontender without obvious deformity. No CVA tenderness. NEUROLOGICAL: Awake and alert. Motor and sensory grossly within normal limits. Five out of 5 muscle strength in all muscle groups. Normal speech. Data Data Orders Ondansetron Inj (Zofran Inj) (07/12/16 11:00) Acetaminophen (Tylenol) (07/12/16 11:00) Sodium Chlor 0.9% 1000 Ml Inj (Ns 1000 M (07/12/16 11:45) Sodium Chlor 0.9% 1000 Ml Inj (Ns 1000 M (07/12/16 11:45) Admit Order (Ed Use Only) (07/12/16 ) Admit To Inpatient (07/12/16 ) Air Brush Artist / Telemetry RIVER.Q8H (07/12/16 11:57) Sodium Chlor 0.9% 1000 Ml Inj (Ns 1000 M (07/12/16 11:57) Sodium Chloride 0.9% Flush (Ns Flush) (07/12/16 12:00) Sodium Chloride 0.9% Flush (Ns Flush) (07/12/16 21:00) Pantoprazole Inj (Protonix Inj) (07/12/16 12:00) Lactic Acid Sepsis Protocol (07/12/16 16:00) Comprehensive Metabolic Panel (07/13/16 06:00) Complete Blood Count With Diff (07/13/16 06:00) Consult Pt Eval & Treat (07/12/16 11:57) Ot Request For Service (07/12/16 11:57) Scd Bilateral/Knee High RIVER.BID (07/12/16 11:57) Vancomycin Consult Pharmacy (Vancomycin (07/12/16 12:00) Piperacil-Tazo 4.5 Gm Premix (Zosyn 4.5 (07/12/16 17:00) ^ Initiate Protocol (07/12/16 11:57) ^ Instruction (07/12/16 11:57) [facility] (07/12/16 12:00) Chlorhexidine 2% Cloth (Chlorhexidine 2% (07/13/16 04:00) Chlorhexidine 2% Cloth (Chlorhexidine 2% (07/12/16 12:00) Mrsa Pcr Surveillance (07/12/16 11:57) Inpatient Certification (07/12/16 ) Consult Gynecology (07/12/16 ) Consult Urology (07/12/16 ) Renogram W Pharm (Dpta/Lasix) (07/12/16 ) Albuterol-Ipratropium Neb (Duoneb Neb) (07/12/16 12:30) Vancomycin Inj (Vancomycin Inj) (07/13/16 00:00) (Hub Use Only)Inp Phy Cons/Ref (07/12/16 ) (Hub Use Only)Inp Phy Cons/Ref (07/12/16 ) Vancomycin Trough (07/14/16 05:45) Vancomycin Inj (Vancomycin Inj) (07/12/16 18:00) [facility] [place] Nursing Information (07/14/16 05:45) Diet Regular Basic (07/12/16 Lunch) Furosemide Inj (Lasix Inj) (07/12/16 14:20) Consult Hospitalist (07/12/16 ) Hydromorphone Pf Inj (Dilaudid Pf Inj) (07/12/16 16:15) Oxycodone-Acetamin 10-325 Mg (Percocet 1 (07/12/16 16:15) Urinary Catheter Management RIVER.Q8H (07/12/16 16:23) Diet Regular Basic (07/13/16 Breakfast) ^ Other Nursing Orders (07/12/16 20:49) Sleeve, Knee Sequential Coy Pr (07/13/16 04:53) Ondansetron Inj (Zofran Inj) (07/13/16 05:00) Physician Name Changes (07/13/16 ) Potassium Chlor 20 Meq Premix (Kcl 20 Me (07/13/16 07:00) Potassium Chloride (Kcl) (07/13/16 08:00) Patient Transfer (07/13/16 ) ^ Other Nursing Orders (07/13/16 10:32) Polyethylene Glycol (Miralax) (07/13/16 12:00) Cancer Antigen 125 (07/13/16 10:32) Labs Laboratory Tests Test 07/12/16 07/12/16 07/13/16 13:40 15:44 04:15 Nasal Screen MRSA (PCR) MRSA NOT DETECTED Lactic Acid Level 1.3 White Blood Count 8.1 Red Blood Count 3.93 Hemoglobin 10.0 Hematocrit 30.8 Mean Corpuscular Volume 78.3 Mean Corpuscular Hemoglobin 25.3 Mean Corpuscular Hemoglobin 32.3 Concent Red Cell Distribution Width 16.5 Platelet Count 173 Mean Platelet Volume 8.7 Neutrophils (%) (Auto) 77.3 Lymphocytes (%) (Auto) 14.3 Monocytes (%) (Auto) 6.4 Eosinophils (%) (Auto) 1.4 Basophils (%) (Auto) 0.6 Neutrophils # (Auto) 6.3 Lymphocytes # (Auto) 1.2 Monocytes # (Auto) 0.5 Eosinophils # (Auto) 0.1 Basophils # (Auto) 0.1 CBC Comment DIFF FINAL Differential Comment Sodium Level 140 Potassium Level 3.1 Chloride Level 104 Carbon Dioxide Level 28.2 Anion Gap 8 Blood Urea Nitrogen 16 Creatinine 0.86 Estimat Glomerular Filtration 71 Rate Random Glucose 118 Calcium Level 8.0 Total Bilirubin 0.8 Aspartate Amino Transf 19 (AST/SGOT) Alanine Aminotransferase 11 (ALT/SGPT) Alkaline Phosphatase 63 Total Protein 6.7 Albumin 2.9 Date/Time Procedure Status Source Growth 07/12/16 10:25 Aerobic Blood Culture - Preliminary Resulted Blood Peripheral Gram Negative Reid 07/12/16 10:25 Anaerobic Blood Culture - Preliminary Resulted Gram Negative Reid 07/12/16 08:15 Urine Culture Received Urine Clean Catch Pending MDM Medical Record Reviewed: Yes Plan Patient needs further evaluation before type of hysterectomy decided upon. Needs pap, endometrial biopsy, Ca125, and resolution of current infection. I will be happy to see in my office upon discharge for the pre operative work up and schedule as appropriate. Can call my office at [phone] Admitting diagnosis: Severe Sepsis, UTI, Obstructive uropathy. Condition: Stable Scripts No Active Prescriptions or Reported Meds Kala Olsen MD Jul 13, 2016 10:40
--- NOTE | 2016-07-13 11:45 | HHI.PR ---
Subjective Patient symptoms today Pt seen and examined. Feeling better today. Pain controlled. No fever this AM. Objective Vital Signs Vital Signs Date Time Temp Pulse Resp B/P Pulse Ox O2 Delivery O2 Flow Rate FiO2 07/13/16 10:45 16 07/13/16 10:00 99 07/13/16 08:00 99 07/13/16 06:00 92 07/13/16 04:00 90 07/13/16 02:00 79 07/13/16 00:00 86 07/12/16 22:00 82 07/12/16 20:00 90 07/12/16 15:00 98 07/12/16 13:31 99.5 118 20 136/74 96 07/12/16 12:06 100.4 123 20 136/68 95 Room Air Intake & Output 07/13/16 07/13/16 07:00 19:00 Intake Total 1744 ml Output Total 2200 ml Balance -456 ml Intake Oral 250 ml TPN/PPN 1494 ml Output Urine Total 2200 ml Result Diagram: 07/13/16 0415 07/13/16 0415 Objective Remarks Abd:soft,tender on right lower abdominal area; no rebound/guarding Medications and IVs Current Medications Medications (Trade) Dose Ordered Sig/Carmen Route Start Time Stop Time Status Last Admin Sodium Chloride 2 ml 2 ml UNSCH PRN IV FLUSH 07/12/16 07:15 07/12/16 07:43 (NS 1000 ml Inj) 1,000 ml @ 75 mls/hr [id number] IV 07/12/16 11:57 07/13/16 07:16 (NS Flush) 2 ml UNSCH PRN IV FLUSH 07/12/16 12:00 (NS Flush) 2 ml BID IV FLUSH 07/12/16 21:00 07/12/16 21:00 Pantoprazole Sodium 40 mg 40 mg DAILY IV 07/12/16 12:00 07/13/16 07:51 Pharmacy Profile Note 0 ml @ 0 mls/hr UNSCH OTHER 07/12/16 12:00 (Zosyn 4.5 Gm Premix) 100 ml @ 200 mls/hr Q6H IV 07/12/16 17:00 07/13/16 10:41 Miscellaneous Information 1 Q361D XX 07/12/16 12:00 (Chlorhexidine 2% Cloth) 3 pack Taper DAILY@04 TOP 07/13/16 04:00 07/09/17 03:59 07/13/16 01:51 Chlorhexidine Gluconate 3 pack 3 pack UNSCH PRN TOP 07/12/16 12:00 (Vancomycin Inj/ NS 500 ml Inj) 515 ml @ 250 mls/hr Q12H IV 07/12/16 18:00 07/13/16 06:25 Miscellaneous Information SPECIFIC LAB TO BE DRAWN:VANCOMYCIN TROUGH DATE TO... ONCE ONCE .XX 07/14/16 17:45 07/14/16 17:46 (Dilaudid Pf Inj) 1 mg Q6HR PRN IV PUSH 07/12/16 16:15 07/13/16 01:50 (Percocet 10-325 Mg) 1 tab Q4H PRN PO 07/12/16 16:15 07/13/16 09:45 (Zofran Inj) 4 mg Q6H PRN IV PUSH 07/13/16 05:00 07/13/16 05:29 (Miralax) 17 gm DAILY PO 07/13/16 12:00 Assessment and Plan Assessment and Plan 45-year-old female with findings of pelvic mass/ovarian cyst with mild right hydronephrosis and hydroureter with possible UTI. Recommend DTPA renal scan to rule out evidence of obstruction. If obstruction is present, will require cystoscopy with right double-J stent insertion. Continue IV fluids and IV antibiotics. Nothing by mouth after midnight. POLICY AND PLANNING MANAGER consult pending. Thank you for the consult and for allow me to participate in the care of this patient. 07/13/16 45 y.o. female with pelvic mass with gram negative sepsis. Renal scan without evidence of obstruction. Continue IV ABX. Harris Reynolds DO Jul 13, 2016 11:45
[2016-07-13] MEDS: POLYETHYLENE GLYCOL 17 GM PKG PO SCH (12:00)
--- NOTE | 2016-07-13 12:11 | EKG ---
Date Performed: 07/12/2016 Time Performed: 08:09:19 PTAGE: 45 years EKG: SINUS TACHYCARDIA NONSPECIFIC ST & T-WAVE ABNORMALITY ABNORMAL RHYTHM ECG NO PREVIOUS TRACING DOCTOR: Horace Melvin Interpretating Date/Time 07/13/2016 12:10:20
--- NOTE | 2016-07-13 14:49 | HHI.PR ---
Subjective Remarks patient feeling better, tolerating po more, no nausea or vomiting still with abdominal discomfort, voiding spontaenously denies any vaginal discharge or bleeding Objective Vitals Vital Signs Date Time Temp Pulse Resp B/P Pulse Ox O2 Delivery O2 Flow Rate FiO2 07/13/16 14:00 99 07/13/16 12:00 99 07/13/16 10:45 16 07/13/16 10:00 99 07/13/16 08:00 99 07/13/16 06:00 92 07/13/16 04:00 90 07/13/16 02:00 79 07/13/16 00:00 86 07/12/16 22:00 82 07/12/16 20:00 90 07/12/16 15:00 98 I/O 07/12/16 07/12/16 07/12/16 07/13/16 07/13/16 07/13/16 07:00 15:00 23:00 07:00 15:00 23:00 Intake Total 3260 ml 973 ml 771 ml Output Total 1100 ml 1100 ml Balance 3260 ml -127 ml -329 ml Intake Oral 250 ml IV Total 3260 ml TPN/PPN 723 ml 771 ml Output Urine Total 1100 ml 1100 ml # Voids 5 Result Diagram: 07/13/16 0415 07/13/16 0415 Imaging Last Impressions Abdomen/Pelvis CT 07/12/16 0709 Signed Impressions: Service Date/Time: Tuesday, July 12, 2016 09:05 - CONCLUSION: 1. Mild right-sided hydronephrosis and mild proximal to mid right hydroureter. Perinephric and periureteral stranding also noted along with mild delay in right-sided renal enhancement. No calculi identified. The level of obstruction appears to be at the level of a large right-sided uterine mass likely representing a fibroid. 2. Bilateral cystic ovarian masses may represent ovarian cysts and could be further evaluated with ultrasound. Chang Rose MD Renal Scan w/Medication NM 07/12/16 0000 Signed Impressions: Service Date/Time: Tuesday, July 12, 2016 14:09 - CONCLUSION: 1. Mild pooling of contrast in the right renal pelvis but no evidence of obstruction. 2. Mildly decreased differential function of the left kidney relative to the right. Chang Rose MD Gall Bladder Ultrasound 07/12/16 0000 Signed Impressions: Service Date/Time: Tuesday, July 12, 2016 07:38 - CONCLUSION: 1. Liver mildly enlarged. 2. Common duct diameter is mildly prominent for age. 3. Sludge in the gallbladder. No calculi or wall thickening identified. Patient reports pain with transducer pressure over the gallbladder. Chang Rose MD Objective Remarks awake and alert, NAD anicteric lungs clear regular rhythm abdomen- soft, + mild tenderness on deep palpation of the lower abdomen extremities no edema neuro exam- unremarkable A/P Assessment and Plan 45-year-old female with: Gram negative severe sepsis etio Pyelonephritis Right hydronephrosis secondary to right uterine mass - lactic acid down -continue on IV antibiotics - IV fluids - Urology ff - gyne ff -DC Vancomycin Prophylaxis: SCDs. Hold heparin or Lovenox till after procedure tomorrow. Patient is hemodynamically stable currently in no acute distress. We'll consult and transfer to hospitalist to assume medical management tomorrow. Critical care will be available as needed. Amaris Mathew MD Jul 13, 2016 14:49
[2016-07-13] MEDS ORDERED: HYDROmorphone HCL PF 1 MG/ML VIAL IV PUSH PRN (15:15)
--- NOTE | 2016-07-13 20:59 | RADRPT ---
EXAM DATE/TIME: 07/13/2016 16:41 [facility] COMPARISON: US PELVIS,COMP,W DOPLR, TRANS VAG, January 27, 2014, 14:25. INDICATIONS : History of fibroids. MEDICAL HISTORY : Abdominal pain. Uterine fibroids. UTI. Tobacco and alcohol use. Ovarian cysts. SURGICAL HISTORY : None. ENCOUNTER: Subsequent ACUITY: 2 days PAIN SCORE: 9/10 LOCATION: Bilateral pelvis MEASUREMENTS: UTERUS: 15.7 x 12.5 x 8.2 cm ENDOMETRIAL STRIPE: 10 mm RIGHT OVARY: 4.1 x 4.0 x 3.2 cm LEFT OVARY: 6.7 x 4.9 x 3.8 cm FINDINGS: UTERUS: The myometrium is diffusely heterogeneous. Within the right body/fundus there is a heterogeneous mass consistent with an intramural fibroid. It measures 10.9 x 10.4 x 8.4 cm where it previously measured 10.6 x 6.4 x 6.8 cm. A smaller fibroid seen on the prior study is not discernible on the current dillon dy. RIGHT OVARY: A 3 cm simple cyst is seen involving the right ovary. The right ovary is otherwise unremarkable. LEFT OVARY: A 3.7 cm simple cyst is seen involving the left ovary. Left ovary is otherwise unremarkable. MISCELLANEOUS: No free fluid. CONCLUSION: 1. Solitary intramural uterine fibroid is larger than the 2014 exam. 2. Bilateral simple ovarian cysts. The largest measures 3.7 cm. Rodolfo Richards Jr., MD on July 13, 2016 at 20:54 Board Certified Radiologist. This report was verified electronically.
[2016-07-13] MEDS ORDERED: POTASSIUM CHLORIDE 10 MEQ CONTROLLED RELEASE TAB PO ONE (21:00)
[2016-07-13] MEDS ORDERED: TEMAZEPAM 7.5 MG CAP PO ONE (23:15)
[2016-07-14] VITALS (10 sets, daily range): BP systolic 106–152; BP diastolic 51–79; PULSE 71–94; RESP 16–20; TEMP 96.2–98.6; O2SAT 96–98
[2016-07-14] MEDS: CHLORHEXIDINE GLUCONATE 2 % 1 PACK (2 CLOTHS) TOP SCH (04:00)
[2016-07-14] MEDS: PIPERACIL-TAZO 4.5 GM PREMIX 100 ML IV SCH ×4 (04:40→22:26)
--- NOTE | 2016-07-14 08:18 | PD.CONS ---
HPI Chief Complaint urosepsis due to compression with large fibroid menorrhagia Date Seen: Jul 14, 2016 Travel History International Travel<30 Days: No Contact w/Intl Traveler<30Days: No Known Affected Area: No History of Present Illness HPI Has less pain, no fever and able to tolerate po well. No vaginal bleedindg at this time aware that her blood cultures grew out E coli x2 Being treated Has hx of frequent bladder and kidney infections likely due to fibroid Aware that we will perform hysterectomy once endometiral biopsy and pap smear obtained in my office. Will shedule early next week. Ca125 normal and not worried about adnexae suspect benign pathology but difficulty procedure. Will sign off and have come to office as soon as she is discharged Allergies-Medications (Allergen,Severity, Reaction): Coded Allergies: Sulfa (Verified Allergy, Severe, HIVES, 07/12/16) Home Meds No Active Prescriptions or Reported Meds Physical Exam Vital Signs Date Time Temp Pulse Resp B/P Pulse Ox O2 Delivery O2 Flow Rate FiO2 07/14/16 08:00 83 07/14/16 06:00 94 07/14/16 04:00 90 07/14/16 02:00 90 07/14/16 00:00 93 07/13/16 22:00 103 07/13/16 20:00 92 07/13/16 18:00 99 07/13/16 16:00 99 07/13/16 14:00 99 07/13/16 12:00 99 07/13/16 10:45 16 07/13/16 10:00 99 Narrative GENERAL: Well-nourished, well-developed patient. SKIN: Warm and dry. HEAD: Normocephalic and atraumatic. EYES: No scleral icterus. No injection or drainage. ENT: No nasal drainage noted. Mucous membranes pink. Airway patent. NECK: Supple, trachea midline. No JVD. CARDIOVASCULAR: Regular rate and rhythm without murmurs, gallops, or rubs. RESPIRATORY: Breath sounds equal bilaterally. No accessory muscle use. BREASTS: Bilateral exam showed no masses , no retractions, no nipple discharge. ABDOMEN/GI: Abdomen soft, non-tender, bowel sounds present, no rebound, no guarding Gravid to [-] weeks size Fundal Height: [-] GENITOURINARY: External Genitalia: intact and normal in appearance BUS glands: [-] Cervix: [-] Dilatation: [-] Effacement: [-] Station: [-] Presentation: [-] Membranes: [intact or ruptured] Uterine Contractions: [-] FHT's: Category: [-] Baseline: [-] Reactive: [-] Variability: [-] Decels: [-] EXTREMITIES: No cyanosis or edema. BACK: Nontender without obvious deformity. No CVA tenderness. NEUROLOGICAL: Awake and alert. Motor and sensory grossly within normal limits. Five out of 5 muscle strength in all muscle groups. Normal speech. Data Data Orders Patient Transfer (07/13/16 ) ^ Other Nursing Orders (07/13/16 10:32) Polyethylene Glycol (Miralax) (07/13/16 12:00) Cancer Antigen 125 (07/13/16 10:32) Us Pelvis Comp Flagger/Non-Preg (07/13/16 ) Hydromorphone Pf Inj (Dilaudid Pf Inj) (07/13/16 15:15) Potassium Chloride (Kcl) (07/13/16 21:00) Basic Metabolic Panel (Bmp) (07/14/16 07:00) Temazepam (Restoril) (07/13/16 23:15) Labs Laboratory Tests Test 07/13/16 11:35 CA 125 Antigen 10.0 Date/Time Procedure Status Source Growth 07/12/16 10:25 Aerobic Blood Culture - Preliminary Resulted Blood Peripheral Gram Negative [facility] 07/12/16 10:25 Anaerobic Blood Culture - Preliminary Resulted Gram Negative [facility] 07/12/16 08:15 Urine Culture - Preliminary Resulted Urine Clean Catch Gram Negative [facility] Admitting diagnosis: Severe Sepsis, UTI, Obstructive uropathy. Condition: Stable Scripts No Active Prescriptions or Reported Meds Kala Olsen MD Jul 14, 2016 08:18
[2016-07-14] MEDS: PANTOPRAZOLE SODIUM 40 MG VIAL IV SCH (09:00)
[2016-07-14] MEDS: POLYETHYLENE GLYCOL 17 GM PKG PO SCH (09:00)
[2016-07-14] MEDS: SODIUM CHLORIDE 0.9% FLUSH 10 ML FLUSH IV FLUSH SCH ×2 (09:00→22:26)
[2016-07-14] MEDS: SODIUM CHLOR 0.9% 1000 ML INJ 1,000 ML IV SCH (09:53)
[2016-07-14] MEDS: oxyCODONE/ACETAMINOPHEN 10 MG/325 MG TAB PO PRN (09:53)
[2016-07-14 10:08] LABS: POTASSIUM 3.4 MEQ/L (3.5-5.1)
[2016-07-14] MEDS: ONDANSETRON HCL 4 MG/2 ML VIAL IV PUSH PRN ×2 (12:43→18:06)
[2016-07-14] MEDS ORDERED: POTASSIUM CHLORIDE 10 MEQ CONTROLLED RELEASE TAB PO ONE (12:45)
--- NOTE | 2016-07-14 14:32 | HHI.PR ---
Subjective Remarks feeling better, no abdominal pain, mild nausea no dysuria or flank pain t down no chills Objective Vitals Vital Signs Date Time Temp Pulse Resp B/P Pulse Ox O2 Delivery O2 Flow Rate FiO2 07/14/16 12:00 83 07/14/16 12:00 98.6 71 20 106/51 07/14/16 10:53 16 07/14/16 10:00 83 07/14/16 08:00 83 07/14/16 08:00 98.5 72 16 116/61 07/14/16 06:00 94 07/14/16 04:00 90 07/14/16 02:00 90 07/14/16 00:00 93 07/13/16 22:00 103 07/13/16 20:00 92 07/13/16 18:00 99 07/13/16 16:00 99 I/O 07/13/16 07/13/16 07/13/16 07/14/16 07/14/16 07/14/16 07:00 15:00 23:00 07:00 15:00 23:00 Intake Total 771 ml 560 ml 1390 ml 1053 ml Output Total 1100 ml 600 ml 700 ml 800 ml Balance -329 ml -40 ml 690 ml 253 ml Intake Oral 560 ml 750 ml 500 ml IV Total 640 ml 553 ml TPN/PPN 771 ml Output Urine Total 1100 ml 600 ml 700 ml 800 ml # Bowel Movements 1 0 0 Result Diagram: 07/13/16 0415 07/14/16 0835 Imaging Last Impressions Pelvis Ultrasound 07/13/16 0000 Signed Impressions: Service Date/Time: July 16:41 - CONCLUSION: 1. Solitary intramural uterine fibroid is larger than the 2014 exam. 2. Bilateral simple ovarian cysts. The largest measures 3.7 cm. Rodolfo Richards Jr., MD Abdomen/Pelvis CT 07/12/16 0709 Signed Impressions: Service Date/Time: Tuesday, July 12, 2016 09:05 - CONCLUSION: 1. Mild right-sided hydronephrosis and mild proximal to mid right hydroureter. Perinephric and periureteral stranding also noted along with mild delay in right-sided renal enhancement. No calculi identified. The level of obstruction appears to be at the level of a large right-sided uterine mass likely representing a fibroid. 2. Bilateral cystic ovarian masses may represent ovarian cysts and could be further evaluated with ultrasound. Chang Rose MD Renal Scan w/Medication NM 07/12/16 0000 Signed Impressions: Service Date/Time: Tuesday, July 12, 2016 14:09 - CONCLUSION: 1. Mild pooling of contrast in the right renal pelvis but no evidence of obstruction. 2. Mildly decreased differential function of the left kidney relative to the right. Chang Rose MD Gall Bladder Ultrasound 07/12/16 0000 Signed Impressions: Service Date/Time: Tuesday, July 12, 2016 07:38 - CONCLUSION: 1. Liver mildly enlarged. 2. Common duct diameter is mildly prominent for age. 3. Sludge in the gallbladder. No calculi or wall thickening identified. Patient reports pain with transducer pressure over the gallbladder. Chang Rose MD Objective Remarks awake and alert, NAD anicteric lungs clear regular rhythm abdomen- soft,nontender extremities no edema neuro exam- unremarkable A/P Assessment and Plan 45-year-old female with: E coli severe sepsis secondary to Pyelonephritis Right hydronephrosis secondary to right uterine mass - lactic acid down -continue on zosyn. ID consult for recommendation and timing/clearance - plan for eventual surgery - IV fluids - Gyne ff. Plan for hysterectomy once sepsis cleared -repeat blood cultures today Hypokalemia- replace with po KCL -recheck in am Prophylaxis: SCDs. Increase activity Amaris Mathew MD Jul 14, 2016 14:32
[2016-07-14] MEDS ORDERED: PHARMACY ORDERED LAB ONE (17:45)
[2016-07-14] MEDS: NS + KCL 20 MEQ INJ 1,000 ML IV SCH (22:25)
[2016-07-14] MEDS: TEMAZEPAM 7.5 MG CAP PO PRN (23:00)
[2016-07-15] VITALS: BP 128/83; PULSE 88; RESP 18; TEMP 99; O2SAT 95
[2016-07-15] MEDS: NS + KCL 20 MEQ INJ 1,000 ML IV SCH ×2 (02:40→11:17)
[2016-07-15 04:00] VITALS: BP 131/86; PULSE 86; RESP 19; TEMP 98.4; O2SAT 95
[2016-07-15] MEDS: CHLORHEXIDINE GLUCONATE 2 % 1 PACK (2 CLOTHS) TOP SCH (05:20)
[2016-07-15] MEDS: PIPERACIL-TAZO 4.5 GM PREMIX 100 ML IV SCH ×2 (05:22→11:15)
[2016-07-15 08:00] VITALS: BP 155/91; PULSE 88; RESP 16; TEMP 98.2; O2SAT 96
[2016-07-15] MEDS: POLYETHYLENE GLYCOL 17 GM PKG PO SCH ×2 (08:07→08:11)
[2016-07-15] MEDS: SODIUM CHLORIDE 0.9% FLUSH 10 ML FLUSH IV FLUSH SCH ×2 (08:07→21:04)
[2016-07-15] MEDS: PANTOPRAZOLE SODIUM 40 MG VIAL IV SCH (08:07)
[2016-07-15 09:57] LABS: BICARBONATE 25.1 MEQ/L (21.0-32.0); POTASSIUM 3.7 MEQ/L (3.5-5.1)
--- NOTE | 2016-07-15 11:17 | PD.ID.CON ---
History of Present Illness Service ID Consult Requested By Reason for Consult Evaluation and Mment of Sepsis, Gram negative bacteremia. Primary Care Physician Non-Staff Diagnoses: History of Present Illness Ms. Danielson is a 45-year-old female with past medical history significant for fibroids, recurrent urinary tract infections who presents to the emergency department with chills, abdominal pain and body aches for the last 4-5 days prior to admission. At the time of my evaluation patient reports that her symptoms have been going on for almost a week. Patient also reports having nausea and one episode of emesis on the morning of admission. She reports she had right flank area pain as well as some suprapubic pain, with no aggravating or relieving factors. She denies any dysuria. She does report to me that her uterine fibroid is large enough to that it is causing an obstruction and has been recommended to have a hysterectomy in the very near future. Patient was in sepsis on admission with elevated lactic acid and was initially admitted on the critical care service. Patient received 3 L of crystalloid bolus as well as IV antibiotics during her initial critical care stay. Blood cultures done as a part of her sepsis workup are now positive for Escherichia coli infectious disease is consulted for evaluation and management of sepsis, gram-negative bacteremia and pyelonephritis. Review of Systems Constitutional: COMPLAINS OF: Diaphoretic episodes, Fever, Chills, DENIES: Fatigue, Weight gain, Weight loss, Dizziness, Change in appetite, Night Sweats Endocrine: DENIES: Abnorml menstrual pattern, Heat/cold intolerance, Polydipsia , Polyuria, Polyphagia Eyes: DENIES: Blurred vision, Diplopia, Eye inflammation, Eye pain, Vision loss , Photosensitivity, Double Vision Ears, nose, mouth, throat: DENIES: Tinnitus, Hearing loss, Vertigo, Nasal discharge, Oral lesions, Throat pain, Hoarseness, Ear Pain, Running Nose, Epistaxis, Sinus Pain, Toothache, Odynophagia Respiratory: DENIES: Apneas, Cough, Snoring, Wheezing, Hemoptysis, Sputum production, Shortness of breath Cardiovascular: DENIES: Chest pain, Palpitations, Syncope, Dyspnea on Exertion , PND, Lower Extremity Edema, Orthopnea, Claudication Gastrointestinal: COMPLAINS OF: Nausea, Vomiting, DENIES: Abdominal pain, Black stools, Bloody stools, Constipation, Diarrhea, Difficulty Swallowing, Anorexia Genitourinary: DENIES: Abnormal vaginal bleeding, Dysmenorrhea, Dyspareunia, Sexual dysfunction, Urinary frequency, Urinary incontinence, Urgency, Hematuria , Dysuria, Nocturia, Vaginal discharge Musculoskeletal: COMPLAINS OF: Muscle aches, Back pain, DENIES: Joint pain, Stiffness, Joint Swelling, Neck pain Integumentary: DENIES: Abnormal pigmentation, Pruritus, Rash, Nail changes, Breast masses, Breast skin changes, Nipple discharge Hematologic/lymphatic: DENIES: Bruising, Lymphadenopathy Immunologic/allergic: DENIES: Eczema, Urticaria Neurologic: DENIES: Abnormal gait, Headache, Localized weakness, Paresthesias, Seizures, Speech Problems, Tremor, Poor Balance Psychiatric: DENIES: Anxiety, Confusion, Mood changes, Depression, Hallucinations, Agitation, Suicidal Ideation, Homicidal Ideation, Delusions Except as stated in HPI: all other systems reviewed are Neg Past Family Social History Allergies: Coded Allergies: Sulfa (Verified Allergy, Severe, HIVES, 07/12/16) Past Medical History Medical History: Denies Significant Hx Diminished Hearing: No Medical other: Yes (OVARIAN CYSTS) Tetanus Vaccination: Unknown Influenza Vaccination: No ?: Not LMP: 3 WEEKS PRIOR : 3 Para: 2 Past Surgical History Surgical History: No Previous Surgery Section: Yes Reported Medications Reported Meds & Active Scripts Active No Active Prescriptions or Reported Medications Active Ordered Medications Current Medications Medications (Trade) Dose Ordered Sig/Carmen Route Start Time Stop Time Status Last Admin (NS Flush) 2 ml UNSCH PRN IV FLUSH 07/12/16 12:00 (NS Flush) 2 ml BID IV FLUSH 07/12/16 21:00 07/14/16 22:26 Pantoprazole Sodium 40 mg 40 mg DAILY IV 07/12/16 12:00 07/15/16 08:07 (Zosyn 4.5 Gm Premix) 100 ml @ 200 mls/hr Q6H IV 07/12/16 17:00 07/15/16 11:15 Miscellaneous Information 1 Q361D XX 07/12/16 12:00 (Chlorhexidine 2% Cloth) 3 pack Taper DAILY@04 TOP 07/13/16 04:00 07/09/17 03:59 07/15/16 05:20 (Chlorhexidine 2% Cloth) 3 pack UNSCH PRN TOP 07/12/16 12:00 (Percocet 10-325 Mg) 1 tab Q4H PRN PO 07/12/16 16:15 07/14/16 09:53 (Zofran Inj) 4 mg Q6H PRN IV PUSH 07/13/16 05:00 07/14/16 18:06 (Miralax) 17 gm DAILY PO 07/13/16 12:00 07/15/16 08:11 Hydromorphone HCl 0.5 mg 0.5 mg Q6H PRN IV PUSH 07/13/16 15:15 (NS + KCl 20 Meq Inj) 1,000 ml @ 84 mls/hr [id number] IV 07/14/16 14:45 07/15/16 02:40 (Restoril) 7.5 mg HS PRN PO 07/14/16 22:45 07/14/16 23:00 Family History Noncontributory Social History Alcohol Use: Yes (OCCASIONAL) Tobacco Use: Yes (1 PACK PER WEEK) Substance Use: No Physical Exam Vital Signs Vital Signs Date Time Temp Pulse Resp B/P Pulse Ox O2 Delivery O2 Flow Rate FiO2 07/15/16 08:00 98.2 88 16 155/91 96 07/15/16 04:00 98.4 86 19 131/86 95 07/15/16 00:00 99.0 88 18 128/83 95 07/14/16 20:00 98.0 88 19 152/79 96 07/14/16 17:35 97.5 89 18 122/78 98 07/14/16 14:00 96.2 84 18 126/78 97 07/14/16 12:00 83 07/14/16 12:00 98.6 71 20 106/51 Physical Exam GENERAL: Obese, well-developed patient, in no apparent distress. SKIN: No rashes, ecchymoses or lesions. Cool and dry. HEAD: Atraumatic. Normocephalic. No temporal or scalp tenderness. EYES: Pupils equal round and reactive. Extraocular motions intact. No scleral icterus. No injection or drainage. ENT: Nose without bleeding, purulent drainage or septal hematoma. Throat without erythema, tonsillar hypertrophy or exudate. Uvula midline. Airway patent. NECK: Trachea midline. No JVD or lymphadenopathy. Supple, nontender, no meningeal signs. CARDIOVASCULAR: Regular rate and rhythm without murmurs, gallops, or rubs. RESPIRATORY: Clear to auscultation. Breath sounds equal bilaterally. No wheezes , rales, or rhonchi. GASTROINTESTINAL: Abdomen soft, non-tender, nondistended. Right CVA tenderness minimal. MUSCULOSKELETAL: Extremities without clubbing, cyanosis, or edema. No joint tenderness, effusion, or edema noted. No calf tenderness. Negative Homans sign bilaterally. NEUROLOGICAL: Awake and alert. Grossly nonfocal Psych cooperative IV line sites with no evidence of infection. Laboratory Laboratory Tests Test 07/15/16 09:23 Sodium Level 137 Potassium Level 3.7 Chloride Level 103 Carbon Dioxide Level 25.1 Anion Gap 9 Blood Urea Nitrogen 10 Creatinine 0.75 Estimat Glomerular Filtration 83 Rate Random Glucose 161 Calcium Level 8.7 Date/Time Procedure Status Source Growth 07/14/16 22:01 Aerobic Blood Culture - Preliminary Resulted Blood Peripheral NO GROWTH IN 1 DAY 07/14/16 22:01 Anaerobic Blood Culture - Preliminary Resulted Blood Peripheral NO GROWTH IN 1 DAY 07/12/16 10:25 Aerobic Blood Culture - Final Complete Blood Peripheral Escherichia Coli 07/12/16 10:25 Anaerobic Blood Culture - Final Complete Escherichia Coli 07/12/16 08:15 Urine Culture - Final Complete Urine Clean Catch Escherichia Coli Result Diagram: 07/13/16 0415 07/15/16 0923 Imaging Last Impressions Pelvis Ultrasound 07/13/16 0000 Signed Impressions: Service Date/Time: July 16:41 - CONCLUSION: 1. Solitary intramural uterine fibroid is larger than the 2014 exam. 2. Bilateral simple ovarian cysts. The largest measures 3.7 cm. Rodolfo Richards Jr., MD Abdomen/Pelvis CT 07/12/16 0709 Signed Impressions: Service Date/Time: Tuesday, July 12, 2016 09:05 - CONCLUSION: 1. Mild right-sided hydronephrosis and mild proximal to mid right hydroureter. Perinephric and periureteral stranding also noted along with mild delay in right-sided renal enhancement. No calculi identified. The level of obstruction appears to be at the level of a large right-sided uterine mass likely representing a fibroid. 2. Bilateral cystic ovarian masses may represent ovarian cysts and could be further evaluated with ultrasound. Chang Rsoe MD Renal Scan w/Medication NM 07/12/16 0000 Signed Impressions: Service Date/Time: Tuesday, July 12, 2016 14:09 - CONCLUSION: 1. Mild pooling of contrast in the right renal pelvis but no evidence of obstruction. 2. Mildly decreased differential function of the left kidney relative to the right. Chang Rose MD Gall Bladder Ultrasound 07/12/16 0000 Signed Impressions: Service Date/Time: Tuesday, July 12, 2016 07:38 - CONCLUSION: 1. Liver mildly enlarged. 2. Common duct diameter is mildly prominent for age. 3. Sludge in the gallbladder. No calculi or wall thickening identified. Patient reports pain with transducer pressure over the gallbladder. Chang Rose MD Assessment and Plan Assessment and Plan Sepsis present on admission Escherichia coli bacteremia Escherichia coli UTI with pyelonephritis, likely obstructive in nature. Obstruction likely from her right uterine fibroid. Recommendations: DC Zosyn IV Start Levaquin IV Follow repeat blood cultures and if these are negative at 48 hours and patient clinically doing well ok to discharge home on oral levaquin 750 mg po daily for 2 weeks. If repeat blood cultures are delayed positive patient may need to come back to hospital for further evaluation. Patient is eager to go home but explained importance of ensuring bacteremia is cleared up. She understands and is thankful of care provided. Recommend no planned surgeries in the period bacteremia is being treated. Will follow her prn over weekend. If any change in clinical condition or any positive cultures (repeat one) please call me sooner. Yvette Lugo MD Jul 15, 2016 11:17
[2016-07-15 12:00] VITALS: BP 150/73; PULSE 89; RESP 16; TEMP 97.1; O2SAT 98
[2016-07-15 16:00] VITALS: BP 149/70; PULSE 84; RESP 16; TEMP 98.3; O2SAT 97
[2016-07-15] MEDS: LEVOFLOXACIN 750 MG PREMIX INJ 150 ML IV SCH (16:30)
--- NOTE | 2016-07-15 16:49 | HHI.PR ---
Subjective Remarks feels great no urinary symptoms no fever or chills Objective Vitals Vital Signs Date Time Temp Pulse Resp B/P Pulse Ox O2 Delivery O2 Flow Rate FiO2 07/15/16 12:00 97.1 89 16 150/73 98 07/15/16 08:00 98.2 88 16 155/91 96 07/15/16 04:00 98.4 86 19 131/86 95 07/15/16 00:00 99.0 88 18 128/83 95 07/14/16 20:00 98.0 88 19 152/79 96 07/14/16 17:35 97.5 89 18 122/78 98 I/O 07/14/16 07/14/16 07/14/16 07/15/16 07/15/16 07/15/16 07:00 15:00 23:00 07:00 15:00 23:00 Intake Total 1053 ml 1920 ml 1152 ml Output Total 800 ml 1150 ml Balance 253 ml 770 ml 1152 ml Intake Oral 500 ml 1320 ml 480 ml IV Total 553 ml 600 ml 672 ml Output Urine Total 800 ml 1150 ml # Voids 3 3 # Bowel Movements 0 Result Diagram: 07/13/16 0415 07/15/16 0923 Imaging Last Impressions Pelvis Ultrasound 07/13/16 0000 Signed Impressions: Service Date/Time: July 16:41 - CONCLUSION: 1. Solitary intramural uterine fibroid is larger than the 2014 exam. 2. Bilateral simple ovarian cysts. The largest measures 3.7 cm. Rodolfo Richards Jr., MD Abdomen/Pelvis CT 07/12/16 0709 Signed Impressions: Service Date/Time: Tuesday, July 12, 2016 09:05 - CONCLUSION: 1. Mild right-sided hydronephrosis and mild proximal to mid right hydroureter. Perinephric and periureteral stranding also noted along with mild delay in right-sided renal enhancement. No calculi identified. The level of obstruction appears to be at the level of a large right-sided uterine mass likely representing a fibroid. 2. Bilateral cystic ovarian masses may represent ovarian cysts and could be further evaluated with ultrasound. Chang Rose MD Renal Scan w/Medication NM 07/12/16 0000 Signed Impressions: Service Date/Time: Tuesday, July 12, 2016 14:09 - CONCLUSION: 1. Mild pooling of contrast in the right renal pelvis but no evidence of obstruction. 2. Mildly decreased differential function of the left kidney relative to the right. Chang Rose MD Gall Bladder Ultrasound 07/12/16 0000 Signed Impressions: Service Date/Time: Tuesday, July 12, 2016 07:38 - CONCLUSION: 1. Liver mildly enlarged. 2. Common duct diameter is mildly prominent for age. 3. Sludge in the gallbladder. No calculi or wall thickening identified. Patient reports pain with transducer pressure over the gallbladder. Chang Rose MD Objective Remarks awake and alert, NAD anicteric lungs clear regular rhythm abdomen- soft,nontender, good bowel sounds extremities no edema neuro exam- unremarkable A/P Assessment and Plan 45-year-old female with: E coli severe sepsis secondary to Pyelonephritis Right hydronephrosis secondary to right uterine mass - lactic acid down - appreciate Dr. Lugo's help- switched to IV Levaquin 750 mg x 48 then change to po if repeat cultures negative x 48 hours - Gyne ff. Plan for hysterectomy once sepsis cleared- OP ff up - ff repeat blood cultures to ensure clearance Hypokalemia- corrected Increase activity Amaris Mathew MD Jul 15, 2016 16:49
[2016-07-15 20:00] VITALS: BP 145/92; PULSE 90; RESP 18; TEMP 97.3; O2SAT 98
[2016-07-15] MEDS: TEMAZEPAM 7.5 MG CAP PO PRN (21:04)
[2016-07-16] VITALS: BP 129/73; PULSE 91; RESP 19; TEMP 97.7; O2SAT 97
[2016-07-16 04:00] VITALS: BP 135/74; PULSE 83; RESP 20; TEMP 97.3; O2SAT 96
[2016-07-16] MEDS: CHLORHEXIDINE GLUCONATE 2 % 1 PACK (2 CLOTHS) TOP SCH (04:00)
[2016-07-16] MEDS: PANTOPRAZOLE SODIUM 40 MG VIAL IV SCH (07:43)
[2016-07-16] MEDS: POLYETHYLENE GLYCOL 17 GM PKG PO SCH (07:44)
[2016-07-16] MEDS: SODIUM CHLORIDE 0.9% FLUSH 10 ML FLUSH IV FLUSH SCH (07:44)
[2016-07-16 08:00] VITALS: BP 139/99; PULSE 86; RESP 16; TEMP 96.6; O2SAT 96
[2016-07-16] MEDS: LEVOFLOXACIN 750 MG PREMIX INJ 150 ML IV SCH (11:54)
[2016-07-16 12:00] VITALS: BP 143/88; PULSE 78; RESP 18; TEMP 97.7; O2SAT 96
--- NOTE | 2016-07-16 13:14 | HHI.PR ---
Subjective Remarks patient doing very well, no abdominal, flank pain voiding spontaenously no dysuria Objective Vitals Vital Signs Date Time Temp Pulse Resp B/P Pulse Ox O2 Delivery O2 Flow Rate FiO2 07/16/16 12:00 97.7 78 18 143/88 96 07/16/16 08:00 96.6 86 16 139/99 96 07/16/16 04:00 97.3 83 20 135/74 96 07/16/16 00:00 97.7 91 19 129/73 97 07/15/16 20:00 97.3 90 18 145/92 98 07/15/16 16:00 98.3 84 16 149/70 97 I/O 07/15/16 07/15/16 07/15/16 07/16/16 07/16/16 07/16/16 07:00 15:00 23:00 07:00 15:00 23:00 Intake Total 1152 ml 480 ml 1605 ml 540 ml Balance 1152 ml 480 ml 1605 ml 540 ml Intake Oral 480 ml 480 ml 480 ml 540 ml IV Total 672 ml 1125 ml # Voids 3 8 6 4 # Bowel Movements 1 1 Result Diagram: 07/13/16 0415 07/15/16 0923 Imaging Last Impressions Pelvis Ultrasound 07/13/16 0000 Signed Impressions: Service Date/Time: July 16:41 - CONCLUSION: 1. Solitary intramural uterine fibroid is larger than the 2014 exam. 2. Bilateral simple ovarian cysts. The largest measures 3.7 cm. Rodolfo Richards Jr., MD Abdomen/Pelvis CT 07/12/16 0709 Signed Impressions: Service Date/Time: Tuesday, July 12, 2016 09:05 - CONCLUSION: 1. Mild right-sided hydronephrosis and mild proximal to mid right hydroureter. Perinephric and periureteral stranding also noted along with mild delay in right-sided renal enhancement. No calculi identified. The level of obstruction appears to be at the level of a large right-sided uterine mass likely representing a fibroid. 2. Bilateral cystic ovarian masses may represent ovarian cysts and could be further evaluated with ultrasound. Chang Rose MD Renal Scan w/Medication NM 07/12/16 0000 Signed Impressions: Service Date/Time: Tuesday, July 12, 2016 14:09 - CONCLUSION: 1. Mild pooling of contrast in the right renal pelvis but no evidence of obstruction. 2. Mildly decreased differential function of the left kidney relative to the right. Chang Rose MD Gall Bladder Ultrasound 07/12/16 0000 Signed Impressions: Service Date/Time: Tuesday, July 12, 2016 07:38 - CONCLUSION: 1. Liver mildly enlarged. 2. Common duct diameter is mildly prominent for age. 3. Sludge in the gallbladder. No calculi or wall thickening identified. Patient reports pain with transducer pressure over the gallbladder. Chang Rose MD Objective Remarks awake and alert, NAD anicteric lungs clear regular rhythm abdomen- soft,nontender, good bowel sounds extremities no edema neuro exam- unremarkable A/P Assessment and Plan 45-year-old female with: E coli severe sepsis secondary to Pyelonephritis Right hydronephrosis secondary to right uterine mass - lactic acid down - appreciate Dr. Lugo's help- switched to IV Levaquin 750 mg x 48 then change to po if repeat cultures negative x 48 hours - Gyne ff. Plan for hysterectomy once sepsis cleared- OP ff up - ff repeat blood cultures to ensure clearance Hypokalemia- corrected Increase activity DC home today Levaquin 750 mg po daily x 12 days diet as tolerated, po fluids activity as tolerated FF up with Dr. Blount as OP- she will call for Amaris Mtz MD Jul 16, 2016 13:14
[2016-07-16] MEDS ORDERED: LEVO750T3 PO (13:21)
[2016-07-16] MEDS ORDERED: ACETAMINOPHEN 325 MG TAB PO PRN (14:00)
[2016-07-17] MEDS ORDERED: INFLUENZA VIRUS VACCINE (QUADRIVALENT) 0.5 ML SYR IM ONE (10:00)
[2016-07-17] MEDS ORDERED: PNEUMOCOCCAL POLYVALENT INJ 25 MCG/0.5 ML SYR IM ONE (10:00)
--- NOTE | 2016-07-21 08:46 | HHI.DS ---
Discharge Summary Admission Date July 12, 2016 at 11:58 Discharge Date: Jul 16, 2016 Admitting Diagnosis Severe Sepsis, UTI, Obstructive uropathy. (1) Sepsis ICD Code: A41.9 Diagnosis: Principal (2) UTI (urinary tract infection) ICD Code: N39.0 Diagnosis: Principal (3) right hydronephrosis secondary to uterine mass Diagnosis: Principal Procedures none Brief History - From Admission This 45-year-old female presents the emergency department with chills abdominal pain and body aches for the past 4-5 days. Patient states she's also having nausea and one episode of emesis morning. States she's never had something was this happen before. She points to her entire abdomen for the pain however there seems to localize mostly to the right upper quadrant. She states it radiates to her back and upper spine. Denies any history of surgeries in the past. Cannot identify any alleviating or exacerbating factors. States she's been taking ibuprofen at home with minimal relief. Also endorses decreased bowel movement frequency over this time period. Symptoms are moderate. Patient underwent CT abdomen and pelvis which revealed right hydronephrosis with perinephric stranding as well as right sided uterine mass. She was also noted to have an elevated lactic acid and was felt to be septic from pyelonephritis. Patient was accepted for admission by critical care medicine service. When I evaluated the patient in the ER she is resting in the ER stretcher did not appear to be in any acute distress. She had received 3 L of crystalloid bolus as well as IV antibiotics. She denied any shortness of breath or chest pain. Denied any nausea currently. Denied any melena or rectal bleeding. She states she has had problems with recurrent UTIs over the last 6 months to year and has known about her pelvic mass however could not get medical treatment due to insurance issues. [facility] Past Medical History Medical History: Denies Significant Hx Diminished Hearing: No Medical other: Yes (OVARIAN CYSTS) Tetanus Vaccination: Unknown Influenza Vaccination: No ?: Not LMP: 3 WEEKS PRIOR : 3 Para: 2 Past Surgical History Surgical History: No Previous Surgery Section: Yes Social History Alcohol Use: Yes (OCCASIONAL) Tobacco Use: Yes (1 PACK PER WEEK) Substance Use: No Allergies-Medications (Allergen,Severity, Reaction): Coded Allergies: Sulfa (Verified Allergy, Severe, HIVES, 07/12/16) Reported Meds & Prescriptions Reported Meds & Active Scripts Active No Active Prescriptions or Reported Medications Review of Systems Except as stated in HPI: all other systems reviewed are Neg Imaging Last Impressions Pelvis Ultrasound 07/13/16 0000 Signed Impressions: Service Date/Time: July 16:41 - CONCLUSION: 1. Solitary intramural uterine fibroid is larger than the 2014 exam. 2. Bilateral simple ovarian cysts. The largest measures 3.7 cm. Rodolfo Richards Jr., MD Abdomen/Pelvis CT 07/12/16 0709 Signed Impressions: Service Date/Time: Tuesday, July 12, 2016 09:05 - CONCLUSION: 1. Mild right-sided hydronephrosis and mild proximal to mid right hydroureter. Perinephric and periureteral stranding also noted along with mild delay in right-sided renal enhancement. No calculi identified. The level of obstruction appears to be at the level of a large right-sided uterine mass likely representing a fibroid. 2. Bilateral cystic ovarian masses may represent ovarian cysts and could be further evaluated with ultrasound. Chang Rose MD Renal Scan w/Medication NM 07/12/16 0000 Signed Impressions: Service Date/Time: Tuesday, July 12, 2016 14:09 - CONCLUSION: 1. Mild pooling of contrast in the right renal pelvis but no evidence of obstruction. 2. Mildly decreased differential function of the left kidney relative to the right. Chang Rose MD Gall Bladder Ultrasound 07/12/16 0000 Signed Impressions: Service Date/Time: Tuesday, July 12, 2016 07:38 - CONCLUSION: 1. Liver mildly enlarged. 2. Common duct diameter is mildly prominent for age. 3. Sludge in the gallbladder. No calculi or wall thickening identified. Patient reports pain with transducer pressure over the gallbladder. Chang Rose MD PE at Discharge awake and alert, NAD anicteric lungs clear regular rhythm abdomen- soft,nontender, good bowel sounds extremities no edema neuro exam- unremarkable Pt update on day of discharge afebrile, no chills no nausea or vomiting or abdominal.flank pain voiding well Hospital Course 45-year-old female with: E coli severe sepsis secondary to Pyelonephritis Right hydronephrosis secondary to right uterine mass - lactic acid down - appreciate Dr. Lugo's help- switched to IV Levaquin 750 mg x 48 then change to po if repeat cultures negative x 48 hours - Gyne ff. Plan for hysterectomy once sepsis cleared- OP ff up - repeat blood cultures to ensure clearance- our office will ff results - DC today. - Hypokalemia- corrected DC home today Levaquin 750 mg po daily x 12 days diet as tolerated, po fluids activity as tolerated FF up with Dr. Blount as OP- she will call for appt Pt Condition on Discharge: Stable Discharge Disposition: Discharge Home Discharge Time: <= 30 minutes Discharge Instructions DIET: Follow Instructions for: As Tolerated, No Restrictions Speech Therapy-Diet Recommends: Regular Activities you can perform: Weight Bearing as Alondra Follow up Referrals: [facility] - Next Day with Kala Olsen MD New Medications: Levofloxacin (Levofloxacin) 750 Mg Tablet 750 MG PO DAILY Infection Days 12 Ref 0 TAB Amaris Mathew MD Jul 21, 2016 08:46
== END 2016-07-16 13:47 | disposition home or self-care (01) | DRG 872 ==
LOC: NEPC 06:35 → NEDA 11:58 → HIMN 13:20 → HOCB 07-14 12:54
PROVIDERS: ADMIT Internal Medicine; ATTEND Internal Medicine
DX: A41.50 Gram-negative sepsis, unspecified (principal); K81.9 Cholecystitis, unspecified; N39.0 Urinary tract infection, site not specified; B96.20 Unspecified Escherichia coli [E. coli] as the cause of diseases classified elsewhere; D25.9 Leiomyoma of uterus, unspecified; E87.6 Hypokalemia; K59.00 Constipation, unspecified; N83.209 Unspecified ovarian cyst, unspecified side; N92.0 Excessive and frequent menstruation with regular cycle; F17.200 Nicotine dependence, unspecified, uncomplicated; Z87.440 Personal history of urinary (tract) infections
CPT/HCPCS: 74177; 76705; 76856; 78708; 80048; 80053; 81001; 83605; 83690; 84703; 85025; 85610; 85730; 86304; 87040; 87077; 87086; 87149; 87186; 87205; 87641; 93005; 96361; 96365; 96375; 96376; A9539; C9113; J1170; J1940; J1956; J2270; J2405; J2543; J3370; J3480; J7030; J7040; J7050; Q9967

== ENCOUNTER 2016-12-07 10:53 | Emergency (ER) | payer SELFPAY ==
[2016-12-07] VITALS (7 sets, daily range): BP systolic 132–202; BP diastolic 73–104; PULSE 86–104; RESP 16–18; TEMP 98.5–99.1; O2SAT 96–99
[~2016-12-07] VITALS: Ht 167.6 cm; Wt 116.2 kg
[~2016-12-07 10:53] MED LIST changes: +LEVO750T3 PO; -MOBI15TA PO; -TRAM50 PO; -Z.0.NO CURRENT MEDS
[2016-12-07] MEDS ORDERED: SODIUM CHLOR 0.9% 1000 ML INJ 1,000 ML IV ONE ×2 (11:19)
--- NOTE | 2016-12-07 11:24 | PD ---
HPI Chief Complaint: Dizziness Time Seen by Provider: 11:11 Travel History International Travel<30 days: No Contact w/Intl Traveler<30days: No Traveled to known affect area: No History of Present Illness HPI Patient comes in complaining of dizziness that occurred shortly prior to arrival. Patient she was at work taking an order when she suddenly became dizzy and felt she was going to pass out. Patient states she sat down drank some orange juice with minimal to no relief of her symptoms. Patient denies anything like this in the past. Denies any chest pain with this. Denies any syncope, shortness of breath, nausea, vomiting, loss change in bowel or bladder , numbness or tingling anywhere, weakness out of the ordinary, headache, or fevers. Patient reports symptoms improve with laying down and focus at something. Standing up makes symptoms worse. PFSH Past Medical History Cancer: No Cardiovascular Problems: No Diminished Hearing: No Endocrine: No Genitourinary: Yes Immune Disorder: No Medical other: Yes (UTERINE MASS) Musculoskeletal: No Neurologic: No Psychiatric: No Reproductive: Yes Respiratory: No ?: Not LMP: OCT 2016 : 3 Para: 2 Past Surgical History Surgical History: No Previous Surgery Section: Yes Social History Alcohol Use: No Tobacco Use: No Substance Use: No Allergies-Medications (Allergen,Severity, Reaction): Coded Allergies: Sulfa (Sulfonamide Antibiotics) (Unverified Allergy, Severe, HIVES, ) Reported Meds & Prescriptions Reported Meds & Active Scripts Active Meclizine (Meclizine HCl) 25 Mg Tab 25 Mg PO Q8HR PRN Levofloxacin 750 Mg Tablet 750 Mg PO DAILY 12 Days Review of Systems Except as stated in HPI: all other systems reviewed are Neg Physical Exam Narrative GENERAL: Well-developed, overly nourished, in no acute distress, and non-ill appearing. SKIN: Focused skin assessment warm and dry. HEAD: Atraumatic. Normocephalic. EYES: Pupils equal and round. EOMI. No scleral icterus. No injection or drainage. ENT: No nasal bleeding or discharge. Mucous membranes pink and moist. NECK: Trachea midline. Supple. No nuclear rigidity. CARDIOVASCULAR: Regular rate and rhythm. No murmur appreciated. RESPIRATORY: No accessory muscle use. No respiratory distress. Clear to auscultation. Breath sounds equal bilaterally. MUSCULOSKELETAL: No obvious deformities. No clubbing. No cyanosis. No edema. Full range of motion. NEUROLOGICAL: Awake and alert. No obvious cranial nerve deficits. Motor grossly within normal limits. Normal speech. PSYCHIATRIC: Appropriate mood and affect; insight and judgment normal. Data Data Last Documented VS Vital Signs Date Time Temp Pulse Resp B/P (MAP) Pulse Ox O2 Delivery O2 Flow Rate FiO2 12/07/16 13:16 98 18 148/84 (105) 99 12/07/16 11:37 Room Air 12/07/16 10:56 99.1 Orders Orders Electrocardiogram (12/07/16 11:19) Basic Metabolic Panel (Bmp) (12/07/16 11:19) Complete Blood Count With Diff (12/07/16 11:19) Magnesium (Mg) (12/07/16 11:19) Act Partial Throm Time (Ptt) (12/07/16 11:19) Prothrombin Time / Inr (Pt) (12/07/16 11:19) Urinalysis - C+S If Indicated (12/07/16 11:19) Ct Brain W/O Iv Contrast(Rout) (12/07/16 11:19) Ecg Monitoring (12/07/16 11:19) Iv Access Insert/Monitor (12/07/16 11:19) Oximetry (12/07/16 11:19) Meclizine (Antivert) (12/07/16 11:30) Sodium Chloride 0.9% Flush (Ns Flush) (12/07/16 11:30) Sodium Chlor 0.9% 1000 Ml Inj (Ns 1000 M (12/07/16 11:19) Orthostatic Vital Signs (12/07/16 11:19) Ed Discharge Order (12/07/16 12:49) Labs Laboratory Tests Test 12/07/16 11:30 White Blood Count 6.6 TH/MM3 Red Blood Count 4.37 MIL/MM3 Hemoglobin 11.1 GM/DL Hematocrit 34.1 % Mean Corpuscular Volume 78.1 FL Mean Corpuscular Hemoglobin 25.5 PG Mean Corpuscular Hemoglobin Concent 32.6 % Red Cell Distribution Width 16.2 % Platelet Count 218 TH/MM3 Mean Platelet Volume 8.4 FL Neutrophils (%) (Auto) 70.2 % Lymphocytes (%) (Auto) 21.2 % Monocytes (%) (Auto) 5.4 % Eosinophils (%) (Auto) 2.1 % Basophils (%) (Auto) 1.1 % Neutrophils # (Auto) 4.7 TH/MM3 Lymphocytes # (Auto) 1.4 TH/MM3 Monocytes # (Auto) 0.4 TH/MM3 Eosinophils # (Auto) 0.1 TH/MM3 Basophils # (Auto) 0.1 TH/MM3 CBC Comment DIFF FINAL Differential Comment Prothrombin Time 10.2 SEC Prothromb Time International Ratio 0.9 RATIO Activated Partial Thromboplast Time 28.0 SEC Urine Color YELLOW Urine Turbidity CLEAR Urine pH 6.0 Urine Specific Mans[place] 1.017 Urine Protein NEG mg/dL Urine Glucose (UA) NEG mg/dL Urine Ketones NEG mg/dL Urine Occult Blood NEG Urine Nitrite NEG Urine Bilirubin NEG Urine Urobilinogen LESS THAN 2.0 MG/DL Urine Leukocyte Esterase NEG Urine RBC 1 /hpf Urine WBC 2 /hpf Urine Mucus FEW /lpf Microscopic Urinalysis Comment CULT NOT INDICATED Blood Urea Nitrogen 20 MG/DL Creatinine 0.94 MG/DL Random Glucose 121 MG/DL Calcium Level 9.4 MG/DL Magnesium Level 1.9 MG/DL Sodium Level 138 MEQ/L Potassium Level 4.0 MEQ/L Chloride Level 103 MEQ/L Carbon Dioxide Level 26.8 MEQ/L Anion Gap 8 MEQ/L Estimat Glomerular Filtration Rate 64 ML/MIN [facility] Medical Decision Making Medical Screen Exam Complete: Yes Emergency Medical Condition: Yes Interpretation(s) EKG reviewed by Dr. Gilliam shows normal sinus rhythm ventricular rate of 88. No STEMI. Differential Diagnosis Vertigo, TIA, CVA, electrolyte abnormality, orthostatics, dehydration, UTI, other Narrative Course The patient presented with symptoms of vertigo. The history and exam/evaluation are consistent with peripheral vertigo and not central. Symptoms are worsened with movement and improved with fixation etc. The cerebellar neurologic exam is completely normal with a normal gait, normal finger to nose bilaterally, and normal heel-fraga exam bilaterally. The clinical suspicion, plan of care and management were discussed with the patient and the patient agreed with plan. Patient in no obvious distress upon re-evaluation. Patient ambulatory in the ER without difficulty. Patient reports feeling much better and wanting to go home. All pertinent laboratory/Radiology result(s) discussed with patient and her daughter. Discussed patient with Dr. Gilliam prior to discharge, who is in agreement with plan of care and disposition. Patient was asked if they wanted to speak to my attending, which the patient did not wish to do at this time. Any questions/concerns in reference to patient diagnosis/condition discussed and clarified prior to patient's discharge. Reinforced sheer importance of close follow up with patient's primary physician or primary care clinic. Instructed patient to return to ED immediately, if symptoms return/ worsen. Patient showed understanding of above instructions. Further instructions and recommendations were detailed in discharge paperwork. Patient ambulated without difficulty out of ED at discharge. Diagnosis Primary Impression: Vertigo Referrals: [facility] Patient Instructions: General Instructions, Vertigo (ED) Additional Instructions: Follow-up with your primary care physician and/or neurologist in 3-5 days for reevaluation. Take all medication as prescribed. Drink plenty of non- caffeinated and nonalcoholic fluids. Return to the emergency department if symptoms get worse. Med/Other Pt SpecificInfo: Prescription(s) given Scripts Meclizine (Meclizine) 25 Mg Tab 25 MG PO Q8HR Y for VERTIGO, #15 TAB 0 Refills Prov: Seth Gilliam MD 12/07/16 Disposition: 01 DISCHARGE HOME Condition: Stable Cornelius Aguilar Dec 07, 2016 11:24
[2016-12-07] MEDS ORDERED: MECLIZINE HCL 25 MG TAB PO ONE ×2 (11:30)
[2016-12-07] MEDS ORDERED: SODIUM CHLORIDE 0.9% FLUSH 10 ML FLUSH IVF PRN ×2 (11:30)
[2016-12-07 11:56] LABS: AUTOMATED NEUTROPHIL # 4.7 TH/MM3 (1.8-7.7); BASOPHIL # 0.1 TH/MM3 (0-0.2); BASOPHIL % 1.1 % (0.0-2.0); EOSINOPHIL # 0.1 TH/MM3 (0-0.4); EOSINOPHIL % 2.1 % (0.0-4.0); HEMATOCRIT 34.1 % (35.0-46.0); HEMOGLOBIN 11.1 GM/DL (11.6-15.3); LYMPH % 21.2 % (9.0-44.0); LYMPHOCYTE # 1.4 TH/MM3 (1.0-4.8); MEAN CELL VOLUME 78.1 FL (80.0-100.0); MEAN CORPUSCULAR HEMOGLOBIN 25.5 PG (27.0-34.0); MEAN CORPUSCULAR HGB CONC 32.6 % (32.0-36.0); MEAN PLATELET VOLUME 8.4 FL (7.0-11.0); MONO % 5.4 % (0.0-8.0); MONOCYTE # 0.4 TH/MM3 (0-0.9); NEUT % 70.2 % (16.0-70.0); PLATELET COUNT 218 TH/MM3 (150-450); RED BLOOD COUNT 4.37 MIL/MM3 (4.00-5.30); RED CELL DISTRIBUTION WIDTH 16.2 % (11.6-17.2); WHITE BLOOD COUNT 6.6 TH/MM3 (4.0-11.0)
[2016-12-07 12:03] LABS: BILIRUBIN, URINE NEG (NEG); BLOOD, URINE NEG (NEG); GLUCOSE,URINE NEG (NEG); KETONE, URINE NEG (NEG); MUCUS URINE FEW /lpf (OCC); NITRITE,URINE NEG (NEG); URINE COLOR YELLOW (YELLW/STRAW); URINE LEUKOCYTE ESTERASE NEG (NEG)
[2016-12-07 12:04] LABS: INTERNATIONAL NORMALIZED RATIO 0.9 RATIO; PROTHROMBIN TIME - PATIENT 10.2 SEC (9.8-11.6)
--- NOTE | 2016-12-07 12:06 | RADRPT ---
EXAM DATE/TIME: 12/07/2016 11:45 [place] COMPARISON: No previous studies available for comparison. INDICATIONS : Episode of patient feeling dizzy faint and nauseated RADIATION DOSE: 43.79 CTDIvol (mGy) MEDICAL HISTORY : None SURGICAL HISTORY : section. ENCOUNTER: Initial ACUITY: 1 day PAIN SCALE: 8/10 LOCATION: cranial TECHNIQUE: Multiple contiguous axial images were obtained of the head. Using automated exposure control and adj ustment of the mA and/or kV according to patient size, radiation dose was kept as low as reasonably a chievable to obtain optimal diagnostic quality images. DICOM format image data is available electro nically for review and comparison. FINDINGS: CEREBRUM: The ventricles are normal for age. No evidence of midline shift, mass lesion, hemorrhage or acute in farction. No extra-axial fluid collections are seen. POSTERIOR FOSSA: The cerebellum and brainstem are intact. The 4th ventricle is midline. The cerebellopontine angle i s unremarkable. EXTRACRANIAL: The visualized portion of the orbits is intact. SKULL: The calvaria is intact. No evidence of skull fracture. CONCLUSION: Normal examination. Rakesh Rogers MD on December 07, 2016 at 12:04 Board Certified Radiologist. This report was verified electronically.
[2016-12-07 12:12] LABS: BICARBONATE 26.8 MEQ/L (21.0-32.0); CALCIUM 9.4 MG/DL (8.5-10.1); CREATININE 0.94 MG/DL (0.50-1.00); MAGNESIUM 1.9 MG/DL (1.5-2.5)
[2016-12-07] MEDS ORDERED: MECL-62 PO ×2 (12:48)
--- NOTE | 2016-12-07 23:35 | EKG ---
Date Performed: 12/07/2016 Time Performed: 11:22:15 PTAGE: 46 years EKG: Sinus rhythm NORMAL ECG WARNING: DATA QUALITY MAY AFFECT INTERPRETATION PREVIOUS TRACING : 07/12/2016 08.09 Compared to prior tracing no significant change DOCTOR: Horace Melvin Interpretating Date/Time 12/07/2016 23:33:24
== END 2016-12-07 13:30 | disposition home or self-care (01) ==
LOC: NEPE 10:53
DX: R42 Dizziness and giddiness (principal); R11.0 Nausea
CPT/HCPCS: 70450; 80048; 81001; 83735; 85025; 85610; 85730; 93005; 99285; J7030